=== PATIENT | female | born 1935 | race Caucasian/White ===

== ENCOUNTER 2016-04-22 23:43 | Inpatient (IN) | payer OTHER ==
--- NOTE | ~2016-04-22 | CN ---
Consultation Report [place] [id number] [place]. [address] NAME: KYLE PAZ : 37 STATUS : ADM Timo PAT#: [id number] AGE: 80 ADM/REG DATE : 04/22/16 MR#: [id number] REPORT SERV DATE: 04/23/16 DICTATED BY: KARO GANDHI DATE: 04/23/16 REPORT STATUS : Draft TRANSCRIBED BY: MODL DATE: 04/23/16 CARDIOLOGY CONSULTATION DATE OF CONSULTATION: 04/23/2016 REQUESTING PHYSICIAN: Silvestre Deluna M.D. REASON FOR CONSULTATION: Congestive heart failure. HISTORY OF PRESENT ILLNESS: Ms. Paz is a pleasant 80-year-old woman, who is living in [place], [place], who has been diagnosed with amyloidosis. This apparently was diagnosed with help of a bone marrow biopsy according to the patient. She was in the hospital in [place], treated for what sounds to be congestive heart failure in addition to seeing an oncologist in regard to the amyloidosis. The patient presented to our emergency room with complaints of volume overload including pedal edema. We do not have any knowledge of the patient's underlying left ventricular systolic function. She was admitted for further evaluation. Last night, Dr. Deluna had started IV Bumex drip to help with diuresis and the patient does feel more comfortable this morning. PAST MEDICAL HISTORY: 1. Notable for the recent diagnosis of amyloidosis, we do not have specifics at this time. 2. Possible congestive heart failure. 3. Hypothyroidism. 4. History of childhood tuberculosis with lung scarring. PAST SURGICAL HISTORY: Hysterectomy and skin cancer of the arm. FAMILY HISTORY: Notable for premature coronary disease. SOCIAL HISTORY: Negative tobacco. Negative alcohol. Family lives in [place], [place], and the patient is going to be moving from [place] to the [place] area to be with family. REVIEW OF SYSTEMS: As noted above. All other systems were reviewed and negative. PHYSICAL EXAMINATION: CONSTITUTIONAL: In no acute distress. Remains somewhat weak and a little bit short of breath. VITAL SIGNS: Blood pressure of 100/70, pulse of 86, and respirations 18. GENERAL: Well developed, well nourished. HEENT: No icterus. Good dentition. NECK: Supple. No masses or thyromegaly Consultation Report [place] [address] [place]. [address] NAME: KYLE PAZ : 36 STATUS : ADM Timo PAT#: [id number] AGE: 80 ADM/REG DATE : 04/22/16 MR#: [id number] REPORT SERV DATE: 04/23/16 DICTATED BY: KARO GANDHI DATE: 04/23/16 REPORT STATUS : Draft TRANSCRIBED BY: MODL DATE: 04/23/16 LUNGS: Decreased breath sounds in the bases. COR: Normal S1, S2. No S3 or S4. No murmurs, clicks, rubs. No JVD ABD: Soft, nondistended, nontender, no hepatosplenomegaly. EXT: 2+ edema in the lower extremities. SKIN: Warm and dry. No visible lesions. MS: Chest wall without deformity, no obvious clavicular fractures. NEURO/PSYCH: Oriented X3. No anxiety or depression. LABORATORY AND DIAGNOSTIC DATA: EKG shows sinus rhythm with normal AL, QRS, and QT intervals. No evidence for ischemia, infarction, or chamber hypertrophy. There is a left axis deviation. Laboratory values were unremarkable except for BNP of 1200. CT scan reveals evidence for portal pleural effusions and a mediastinal mass. IMPRESSION: Probable congestive heart failure, question if it is related to the patient's underlying amyloidosis. An echocardiogram has been ordered. We are holding DORIS inhibitor and beta carissa, due to relative hypotension. She is on an IV Bumex drip, we will continue as her blood pressure and renal function will tolerate. We will look for specific features of amyloidosis on echocardiogram including speckled pattern and evidence for systolic and diastolic dysfunction occurring together. Treatment remains limited for this from a cardiac standpoint. We will defer other issues regarding amyloidosis workup and treatment to other physicians being consulted on the case. /MODL Karo Gandhi M.D. / [id number] CC: Collins Hardy Jr, MD
--- NOTE | ~2016-04-22 | PUL ---
[place] [address] [id number] [place]. [address] NAME: KYLE PAZ : 36 STATUS : DIS IN PAT#: [id number] AGE: 80 ADM/REG DATE : 04/22/16 MR#: [id number] REPORT SERV DATE: 04/29/16 DICTATED BY: ZEENAT HIGH DATE: 04/29/16 REPORT STATUS : Draft TRANSCRIBED BY: MODL DATE: 04/29/16 PULMONARY FUNCTION TEST OVERNIGHT OXIMETRY. START DATE OF TESTIN04/24/2016. END DATE OF TESTIN04/25/2016 COMMENTS: Testing conducted with the patient breathing room air. RESULTS: Total valid sampling time: 6 hours 53 minutes and 2 seconds. Total time with an oxygen saturation less than 88%, 18 seconds. Oxygen desaturation event index. 26.0. IMPRESSION: There was no significant desaturation during this study conducted with the patient breathing room air. The oxygen desaturation index was elevated suspicious for possible obstructive sleep apnea, however, as noted, there was no significant oxygen desaturation. Recommend formal sleep study if clinically indicated. PS/YADIEL Zeenat High M.D. / [id number] CC: Ramon Cronin II, MD
--- NOTE | ~2016-04-22 | HP ---
History And Physical [place] [address] [facility] [place]. [address] NAME: KYLE PAZ : 36 STATUS : ADM Timo PAT#: [id number] AGE: 80 ADM/REG DATE : 04/22/16 MR#: [id number] REPORT SERV DATE: 04/23/16 DICTATED BY: YA KIM DATE: 04/23/16 REPORT STATUS : Draft TRANSCRIBED BY: MODL DATE: 04/23/16 DATE OF ADMISSION: 04/22/2016 CHIEF COMPLAINT: A 80-year-old female, moved down from [place], [place] to live with her daughter in [place], [place] and now asking for medical advice, and stabilization of volume overload and apparent AL amyloidosis. HISTORY OF PRESENT ILLNESS: The patient's history was obtained through an interview with the patient and her daughter. The patient had really been in usual state of health when just gradually over the last two years she has developed problems with volume overload, lower extremity edema, and shortness of breath. But then over the last four weeks or so, it is really progressed to the point where she had to seek out medical care. The patient was found to have a low serum albumin and proteinuria. This led to a bone marrow biopsy and the patient was apparently given the diagnosis of AL amyloidosis. She has seen an oncologist within the last month in [place], [place] and was recommended to possibly be on chemotherapy including Revlimid and dexamethasone, but this had not been started as they were waiting for patient's clinical state to improve. But over the last 11 days prior to this admission, she was hospitalized at [facility] in [place], [place] for volume overload issues including more than 1 thoracentesis for recurrent pleural effusions. The daughter really wanted the patient to be transferred down to the [place] area (close to where the daughter lives), so she was discharged from the hospital, just on the day of admission, and the daughter drove her down to our hospital to be admitted for further stabilization and to be established with physicians here in [place]. Her main complaints continued to be shortness of breath characterized both by dyspnea on exertion and orthopnea. There is no cough, no chest pain. The patient at this time denies any pain at all. No abdominal pain. No headache. No back pain. No nausea or vomiting. No fevers or chills. She continues to have pitting and uncomfortable lower extremity edema. Mild abdominal distention. REVIEW OF SYSTEMS: I went through a 14-point review of systems with the family and patient and was negative otherwise. History And Physical [address] [place]. [address] NAME: KYLE PAZ : 36 STATUS : ADM Timo PAT#: [id number] AGE: 80 ADM/REG DATE : 04/22/16 MR#: [id number] REPORT SERV DATE: 04/23/16 DICTATED BY: YA KIM DATE: 04/23/16 REPORT STATUS : Draft TRANSCRIBED BY: MODL DATE: 04/23/16 PAST MEDICAL HISTORY: 1. Amyloidosis. 2. Possible congestive heart failure? 3. Hypothyroidism. 4. Childhood tuberculosis with scarring of the lungs. 5. Pneumonia. 6. Hypotension with blood pressure chronically in the systolic 90s. 7. Thoracentesis, multiple in 2017. PAST SURGICAL HISTORY: 1. Hysterectomy. 2. Skin cancer of the arm. 3. Breast surgery for Staph infection years ago. ALLERGIES: NO KNOWN DRUG ALLERGIES. SOCIAL HISTORY: No tobacco abuse. No alcohol abuse. Now is moved to [place], [place] to live with daughter. She has a total of four children. Has been a for 32 years. 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 FAMILY HISTORY: Coronary artery disease. CURRENT MEDICATIONS: Include aspirin 81 mg daily, vitamin D, vitamin B12, Synthroid 125 mcg daily, multivitamin. PHYSICAL EXAMINATION: VITAL SIGNS: Temperature 98.0, pulse 93, blood pressure 103/60, respiratory rate 18, O2 saturation 92% on room air. GENERAL: A chronically ill-appearing female, but she does not appear in acute distress at this time. HEENT: Pupils equal, round, and reactive to light. No conjunctival pallor. No scleral icterus. Nares are patent. Oropharynx is clear of obstruction. Moist mucous membranes. NECK: Trachea midline. No thyromegaly. LYMPH: No cervical lymphadenopathy. No supraclavicular lymphadenopathy. RESPIRATORY: The patient does have wet rales at the base of lungs. Dullness to percussion to suggest bilateral pleural effusions. No rhonchi. No wheezes. The patient has a labored respiratory effort, but is not in any distress. CARDIOVASCULAR: Regular rate and rhythm. No murmurs, rubs, or gallops. The patient does have deeply pitting lower extremity edema extending from the feet upward to the thighs symmetrically. ABDOMEN: Soft, nontender, nondistended by my exam. No hepatosplenomegaly. DERMATOLOGICAL: Warm and dry extremities. No pallor, no cyanosis. PSYCHIATRIC: Normal affect. Good mood. Alert and oriented x3. LABORATORY DATA: White blood count 8.3, hemoglobin 14, hematocrit 35, platelets 297, MCV of 100.9. Sodium 131, potassium 4.5, chloride 92, bicarb 31, BUN 30, creatinine 0.7 glucose History And Physical [address] [address] NAME: KYLE PAZ : 36 STATUS : ADM Timo PAT#: [id number] AGE: 80 ADM/REG DATE : 04/22/16 MR#: [id number] REPORT SERV DATE: 04/23/16 DICTATED BY: YA KIM DATE: 04/23/16 REPORT STATUS : Draft TRANSCRIBED BY: YADIEL DATE: 04/23/16 94. Brain natriuretic peptide 1229, troponin 0.27, albumin 1.7. INR 1.2. TSH elevated at 13.7, and liver enzymes within normal limits. STUDIES: 1. CT angiogram of the chest shows bilateral pleural effusions. Also mediastinal lymphadenopathy/mass effect, possible pneumonia? likely atelectasis. No pulmonary embolism. 2. EKG by my own evaluation shows sinus rhythm, left axis deviation. ASSESSMENT AND PLAN: 1. AL amyloidosis. Would like to establish care with an oncologist in [place], so we will ask Oncology to see the patient. 2. Volume overload. Possible congestive heart failure? Check an echocardiogram. Hold Coreg and DORIS inhibitor though because of hypotension. Try IV Bumex drip to see if patient tolerates with her blood pressure and also place on IV albumin. 3. 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 4. Undertreated hypothyroidism, but had her Synthroid dose increased just a week ago from 100 mcg p.o. daily to 125 mcg p.o. daily. 5. Chronic hypotension with baseline low blood pressure in the 90s. I have requested records from [facility] in [place], [place]. KPL/MODL Ya Kim M.D. / [id number] CC: Collins Hardy Jr, MD
--- NOTE | ~2016-04-22 | DS ---
Discharge Summary [facility] [address] [place]. [address] NAME: KYLE PAZ : 36 STATUS : DIS IN PAT#: [id number] AGE: 80 ADM/REG DATE : 04/22/16 MR#: [id number] REPORT SERV DATE: 05/02/16 DICTATED BY: BULMARO TORREZ JR. DATE: 04/29/16 REPORT STATUS : Draft TRANSCRIBED BY: MODL DATE: 04/29/16 ADMISSION DATE: 04/22/2016 DISCHARGE DATE: 04/29/2016 DISCHARGE DIAGNOSES: 1. AL amyloidosis. 2. Acute on chronic diastolic congestive heart failure. 3. Recurrent bilateral pleural effusions, status post multiple thoracenteses. 4. Deconditioning. 5. Hypotension. 6. 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 7. Hypothyroidism. CONSULTS: 1. Dr. Vera with [facility]. 2. Dr. Ovalle with Cardiology. 3. Dr. High with Pulmonary. BRIEF HISTORY OF PRESENT ILLNESS: The patient is a 80-year-old female with the above history who presented to [facility] due to volume overload, but also with the intention of establishing care in the local area given her amyloidosis and multiple issues. For detailed history and physical examination, please see Dr. Deluna's note from 04/22/2016. HOSPITAL COURSE: On admission, the patient was volume overloaded with a BNP of 1228. She was diuresed and echo showed EF 50%-55% with moderate diastolic dysfunction and moderate AVR. She had a CTA of the chest done, which showed no pulmonary embolus, but dense areas of consolidation in the lingula and posterolateral left lower lobe concerning for pneumonia as well as atelectatic changes scattered within the lower lobes of both lungs as well as within the right upper lobe and middle lobe. Otherwise small to moderate right and moderate left pleural effusions. Mediastinal lymphadenopathy. Biapical fibrosis and pleural thickening. Diffusely thickened appearance of the esophagus, possibly due to esophagitis versus superimposed neoplastic process. Dr. Vera with [facility] was consulted. Extensive workup had already been done at [facility] and so records were obtained. The patient had already been given prescriptions and had filled her Revlimid and Decadron. She had not started taking them yet. Given that she will be leaving for assisted living facility, Dr. Bustillo has recommended going ahead and starting her Revlimid. Regarding her CHF, she was diuresed with Lasix with some improvement though she still does have some bilateral lower extremity edema. She had a thoracentesis done as well given reaccumulation of her pleural fluid. A 1.3 L was taken off the left lung. BNP is improved to 700. Pulmonary was involved and thought that the patient's recurrent effusions were likely related to her volume status, and if they continue to recover, may need pleurodesis. She was eventually switched by Cardiology to torsemide, Aldactone, and Toprol-XL. She will continue these and try and optimize her CHF. She will need close followup with Pulmonary, Cardiology, and [facility]. Currently, the patient is ambulating on room air and is stable for discharge. Discharge Summary [address] [address] NAME: KYLE PAZ : 36 STATUS : DIS IN PAT#: [id number] AGE: 80 ADM/REG DATE : 04/22/16 MR#: [id number] REPORT SERV DATE: 05/02/16 DICTATED BY: BULMARO TORREZ JR. DATE: 04/29/16 REPORT STATUS : Draft TRANSCRIBED BY: YADIEL DATE: 04/29/16 DISCHARGE MEDICATIONS: 1. Aspirin 81 mg p.o. daily. 2. Vitamin B12 500 mcg p.o. daily. 3. Vitamin D 1000 units p.o. daily. 4. Synthroid 125 mcg p.o. daily. 5. Multivitamin with minerals 1 tab p.o. daily. 6. Aldactone 12.5 mg p.o. b.i.d. 7. Demadex 5 mg p.o. daily. 8. Potassium chloride 20 mEq p.o. daily. 9. Toprol-XL 12.5 mg p.o. daily. 10.Revlimid 15 mg p.o. daily x21 days. 11.Decadron 20 mg p.o. weekly. DISCHARGE INSTRUCTIONS: The patient will follow up with Dr. Vera in one week. She will follow up with Dr. High in two to three weeks. She will follow up with Dr. Ovalle on 05/16/2016 at 8:30. A BMP will be drawn in two weeks and faxed to Dr. Ovalle. /PRAFULL Bulmaro Torrez Jr., M.D. / [id number] CC: MD Afshin Lambert II, M.D. Kevin P Luce, M.D. Pamela Sud, M.D. Ravi Chander, M.D. Bertrand Marquess Anz III, M.D.
--- NOTE | ~2016-04-22 | CN ---
Consultation Report [place] [address] [facility] [place]. [address] NAME: KYLE PAZ : 36 STATUS : ADM Timo PAT#: [id number] AGE: 80 ADM/REG DATE : 04/22/16 MR#: [id number] REPORT SERV DATE: 04/23/16 DICTATED BY: SHABNAM LOGAN DATE: 04/23/16 REPORT STATUS : Draft TRANSCRIBED BY: MODL DATE: 04/23/16 HEMATOLOGY/ONCOLOGY CONSULT. DATE OF CONSULTATION: CONSULTING PHYSICIAN: Hospitalist's service. HISTORY OF PRESENT ILLNESS: This is a very nice 80-year-old, female, with past medical history significant for hypothyroidism, previous diagnosis of tuberculosis, and recent diagnosis of AL amyloidosis. Ms Paz and her daughter informed me that over the past month to two months, she has had progressive weakness, shortness of breath, and swelling. She was admitted to [facility], seen by variety of specialists including Nephrology and Hematology/Oncology (Dr. Guallpa). She underwent evaluation with a kidney biopsy, and bone marrow biopsy, as well as serum and urine studies. A diagnosis of AL amyloidosis was made. Ms. Paz was prescribed Revlimid and dexamethasone by Dr. Guallpa, but did not start due to her acute illness. She was discharged, then readmitted at a hospital in [place], [place]. She underwent diuresis and thoracentesis. She was discharged, and then readmitted here as the patient's daughter lives in [facility], and she is sought to be closer to family. Currently, she complains of weakness and shortness of breath. She is treated now with a Bumex drip and albumin infusions. Cardiology has been consulted, and an echocardiogram performed. PAST MEDICAL HISTORY: 1. Hypothyroidism. 2. Previous diagnosis of tuberculosis. 3. Recent diagnosis of amyloidosis. 4. Status post hysterectomy. ALLERGIES: NO KNOWN DRUG ALLERGIES. MEDICATIONS: Current medications include albumin, aspirin, B12, vitamin D, Lovenox, Synthroid, and multivitamin. FAMILY HISTORY: Notable for CAD. SOCIAL HISTORY: The patient does not smoke or drink alcohol. She now lives in [place], [place], attempting to live with her daughter. She is . REVIEW OF SYSTEMS: Eleven system review of systems was performed and is notable for those symptoms mentioned in Consultation Report [address] [place]. [address] NAME: KYLE PAZ : 36 STATUS : ADM Timo PAT#: [id number] AGE: 80 ADM/REG DATE : 04/22/16 MR#: [id number] REPORT SERV DATE: 04/23/16 DICTATED BY: SHABNAM LOGAN DATE: 04/23/16 REPORT STATUS : Draft TRANSCRIBED BY: MODL DATE: 04/23/16 the history of present illness. PHYSICAL EXAMINATION: VITAL SIGNS: Blood pressure 99/59, temperature 98.4, pulse 104, respirations 16. GENERAL: Thin elderly white female with no acute distress. HEAD: Atraumatic and normocephalic. HEENT: Anicteric sclerae, no oral thrush or mucositis. LYMPH NODE SURVEY: There is no palpable cervical, supraclavicular, or axillary lymphadenopathy. PULMONARY: Decreased breath sounds throughout. CARDIAC: Regular rate and rhythm without murmurs. ABDOMEN: Soft, nontender, without a spleen tip which is palpable. EXTREMITIES: Bilateral lower extremity edema. NEUROLOGIC: Alert and oriented x3. Moving all extremities. PSYCHIATRIC: Appropriate insight. No hallucinations. LABORATORY STUDIES: CBC: White count 5.5, hemoglobin 11.3, platelet count 284. CMP: Sodium 134, potassium 3.8, BUN 26, creatinine 0.77, albumin 2.9, total protein 5.8. BNP: 1327.9. CTA chest imaging: No pulmonary embolus. Consolidation in the lingula and left lower lobe, likely representing pneumonia. Atelectasis also noted in both lungs. Bilateral pleural effusions. Mediastinal lymphadenopathy, possibly reactive. Biapical fibrosis and pleural thickening, diffusely thickened esophagus, likely esophagitis. Evidence of old granulomatous disease. ASSESSMENT AND PLAN: This is a very pleasant 80-year-old female, who carries a diagnosis of AL amyloidosis. She presents with shortness of breath and evidence of congestive heart failure. 1. I will request old records, including pathology/imaging, lab work from [facility]. 2. I will repeat serum studies including SPEP, immunofixation, and serum free light chains. Given that she is receiving a Bumex drip, I will defer 24 hour urine and urine protein electrophoresis for now. From the history, it seems that she has significant amounts of proteinuria, which would be consistent with amyloidosis. 3. If this is indeed an AL amyloid with cardiac involvement, the prognosis is very poor. Given her performance status and age, oral therapy with Revlimid and dexamethasone is a very reasonable option. 4. I will follow with you. Thank you for this consult. [facility]/PRAFULL Consultation Report [facility] [address] [address] NAME: KYLE PAZ : 37 STATUS : ADM Timo PAT#: [id number] AGE: 80 ADM/REG DATE : 04/22/16 MR#: [id number] REPORT SERV DATE: 04/23/16 DICTATED BY: SHABNAM LOGAN. DATE: 04/23/16 REPORT STATUS : Draft TRANSCRIBED BY: YADIEL DATE: 04/23/16 Shabnam Logan M.D. / [id number] CC: Lucretia Mcconnell M.D.
--- NOTE | ~2016-04-22 | CN ---
Consultation Report [facility] [address] [place]. [address] NAME: KYLE PAZ : 37 STATUS : ADM Timo PAT#: [id number] AGE: 80 ADM/REG DATE : 04/22/16 MR#: [id number] REPORT SERV DATE: 04/24/16 DICTATED BY: CHAO ANDERSON IV DATE: 04/24/16 REPORT STATUS : Draft TRANSCRIBED BY: MODMaximiliano DATE: 04/24/16 DATE OF CONSULTATION: 04/24/2016 REASON FOR CONSULTATION: Pleural effusions, pulmonary infiltrates, and mediastinal adenopathy. HISTORY OF PRESENT ILLNESS: History is obtained from the patient and the records. Ms. 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 The patient reportedly has had problems with increasing shortness of breath and peripheral edema over the last year. She was recently hospitalized at [facility] in March, where extensive evaluation demonstrated what was reported amyloidosis on a biopsy of the kidney as well as a plasma cell tumor in the bone marrow biopsy. The patient was offered chemotherapy, however, deferred treatment at that time. She has been hospitalized recently in [place] for shortness of breath and recurrent pleural effusions status post two reported left thoracenteses of 2 L and 1.5 L. The characteristics of that fluid are not known at this time. Because of wishes to establish care in this area, they were discharged from [place] and the daughter brought the patient to our facility, where she was admitted. The patient currently has no significant complaints of shortness of breath. She has an occasional dry and nonproductive cough. She denies any apparent sputum production, fevers, chills, sweats, or hemoptysis at this time. She reportedly had an abnormal overnight oximetry, for which supplemental oxygen was to be offered; however, she is not on oxygen at this time. She is not on bronchodilator medications. As part of the evaluation, the patient had a CT scan performed at [facility], which demonstrated a large AP window lymph node, which was suggested to be followed serially. She had thickening of the esophagus on studies as well. The patient reportedly snores and her son has noted some apneic episodes. She allows herself 7 hours to 8 hours of sleep last evening. Sleep is marginally restorative and she does complain of some sedentary hypersomnolence. PULMONARY HISTORY: Remarkable for no history of childhood asthma or known adult obstructive lung disease. She has had by her report tuberculosis in the past based on previous exposure, positive skin test, and scarring in her right upper lobe, which is old. She did receive one year of INH for this. She is a lifelong nonsmoker. She had reported asbestos exposure when she was younger and does have some pleural calcifications. She is up-to-date on her immunizations. PAST MEDICAL HISTORY: 1. Reported pulmonary tuberculosis. 2. Hypothyroidism. 3. Left ventricular hypertrophy with diastolic heart dysfunction and aortic and mitral insufficiency. Consultation Report [place] [address] [place]. [address] NAME: KYLE PAZ : 37 STATUS : ADM Timo PAT#: [id number] AGE: 80 ADM/REG DATE : 04/22/16 MR#: [id number] REPORT SERV DATE: 04/24/16 DICTATED BY: CHAO ANDERSON IV DATE: 04/24/16 REPORT STATUS : Draft TRANSCRIBED BY: YADIEL DATE: 04/24/16 4. 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 SURGERIES: She had total abdominal hysterectomy. The kidney biopsy is noted. She had I and D of abscesses of staph infection in both breasts. She had left foot surgery and ear surgery. ALLERGIES: THERE ARE NO KNOWN DRUG ALLERGIES. CURRENT MEDICATIONS: The patient is on Synthroid 125 mcg daily, aspirin 81 mg daily, Bumex 1 mg q.12 hours, Lovenox 40 mg subcutaneously daily, multivitamin daily, B12 daily, and vitamin D daily. SOCIAL HISTORY: Remarkable for no tobacco, alcohol, or illicit drug use. She is and has four children. FAMILY HISTORY: Remarkable for both parents with hypertension and coronary artery disease and her maternal grandfather with tuberculosis. REVIEW OF SYSTEMS: Fourteen-systems reviewed. Pertinent positives as noted above. PHYSICAL EXAMINATION: GENERAL: This is a pleasant elderly female, in no current distress. She is alert, awake, and oriented. VITAL SIGNS: Temperature is 97.7, pulse is 93, oxygen saturation is 96% on room air, respiratory rate 16, her blood pressure is 105/58. HEENT: Normocephalic, atraumatic. Extraocular movements are intact. Pupils react to light. Sclerae and conjunctivae are normal. There is no drainage from either nasal passage. She has a Mallampati III airway with elongated soft palate and narrowing of the posterior pharyngeal space. No other oral lesions are noted. NECK: Without any palpable lymphadenopathy or thyromegaly. CHEST: The patient has decreased breath sounds at both bases. There are some minimal dry bibasilar inspiratory crackles. No wheezes or rhonchi noted. CARDIOVASCULAR: Jugular venous pulsations appear to be approximately 7 cm. She has 1+ carotid upstrokes. No obvious bruit. She has a distant regular S1 and S2 with no clear murmur, S3, or S4. Peripheral pulses are diminished. ABDOMEN: Surgical scars are noted. Soft and nontender. There are hypoactive bowel sounds. There is no palpable hepatosplenomegaly or masses. EXTREMITIES: Demonstrate some trace to 1+ pitting edema. There is no cyanosis, clubbing, or palpable cords. There are some chronic venous stasis changes. NEUROLOGIC: The patient is able to move all extremities. Strength is 5/5 and sensation intact to light touch. LABORATORY AND DIAGNOSTIC DATA: Chest CT scan and CT angiogram demonstrated some scarring in the right upper lobe with some calcifications centrally. There are some calcified pleural Consultation Report [address] [place]. [address] NAME: KYLE PAZ : 37 STATUS : ADM Timo PAT#: [id number] AGE: 80 ADM/REG DATE : 04/22/16 MR#: [id number] REPORT SERV DATE: 04/24/16 DICTATED BY: CHAO ANDERSON IV DATE: 04/24/16 REPORT STATUS : Draft TRANSCRIBED BY: YADIEL DATE: 04/24/16 plaques. She has some patchy infiltrate in the lateral lingula and left lower lobe. There is some dilatation of the esophagus with thickening of the wall. She has fairly large level V lymph node with a level VII lymph node as well and some smaller lymph nodes in the mediastinum. There is a left greater than right pleural effusion that is mild on the right, [id number] on the left. CBC: Hemoglobin is 11.8, hematocrit 34.4, platelet count is 303,000, white blood cell count is 6.5, INR is 1.3, procalcitonin level is less than 0.05. Chemistry: Sodium 136, potassium 3.5, chloride 94, bicarbonate 33, BUN 27, creatinine 0.79, glucose of 98, magnesium is 2.2. The troponins are 0.27 and 0.25. TSH were 30.7 and 6.05. The IgG was 423 with IgA of 152 and IgM significantly elevated at 1200. ASSESSMENT AND PLAN: 1. Respiratory. We will get the results of the previous thoracentesis from [facility]. There is no indication without these results of a diagnostic and there is no reason for therapeutic at this time. We will get actual disk of the [facility] chest CT scan to evaluate comparison of the lymph nodes and see if they have enlarged, particularly the level VII, which is not described on the earlier study. Oxygen will be provided if needed to maintain saturations in the 99% range. The infiltrates are concerning for pneumonia; however, she has no symptoms of pneumonia and a low procalcitonin level. This could be potentially amyloid involvement of the lung. The patient does have a history of old tuberculosis with possibly explaining the upper lobe scarring. She also has some symptoms consistent with obstructive sleep apnea, which will be evaluated in the overnight oximetry. 2. Endocrinologic. Her TSH is still elevated and so we would consider increasing the Synthroid. 3. Renal. We will replace the patient's potassium. Add phosphate to blood in the lab. ABG may be obtained if she has further rise in the bicarbonate to document metabolic alkalosis. 4. Infectious disease. The patient does have the low IgG, so we will check IgG subclass levels as this may be part of her plasma cell process. Thank you for consulting us. I spent more than 30 minutes reviewing records from other facilities. We will follow the patient with you. NM/MODL Chao Anderson IV, M.D. / [id number] CC: Lucretia Mcconnell M.D.
[2016-04-22 21:56] LABS: BASOPHILS 0.2 %; BASOPHILS ABSOLUTE 0.02 10/3/uL (0.0-0.16); EOSINOPHILS 0.8 %; EOSINOPHILS ABSOLUTE 0.07 10/3/uL (0.0-0.53); ER CBC TAT 0 Hrs 12 Mins; HEMATOCRIT 35.4 % (36.0-48.0); HEMOGLOBIN 13.6 g/dL (12.0-16.0); IMMATURE GRANULOCYTES 0.4 %; IMMATURE GRANULOCYTES ABSOLUTE 0.03 10/3/uL (0.0-0.11); LYMPHOCYTES 12.5 %; LYMPHOCYTES ABSOLUTE 1.03 10/3/uL (0.67-4.30); MEAN CORPUS HGB CONC 38.4 g/dL (32.0-36.0); MEAN CORPUSCULAR HEMOGLOB 38.7 pg (26.0-34.0); MEAN CORPUSCULAR VOLUME 100.9 fL (80-100); MEAN PLATELET VOLUME 10.9 fL (9.2-13.0); MONOCYTES ABSOLUTE 0.91 10/3/uL (0.21-1.20); NEUTROPHILS 75.1 %; NEUTROPHILS ABSOLUTE 6.21 10/3/uL (2.02-8.40); PLATELET COUNT 297 10/3/uL (150-400); RBC DISTRIBUTION WIDTH 13.3 % (12.0-16.0); RED CELL COUNT 3.51 10/6/uL (4.0-5.6); WHITE BLOOD CELLS 8.3 10/3/uL (4.5-10.5)
[2016-04-22 22:02] LABS: INTERNATIONAL NORMAL RATI 1.2 UNITS (-); PROTIME (NOT ORD) 14.9 SEC (12.0-14.5)
[2016-04-22 22:03] LABS: PARTIAL THROMBO TIME 32.7 SEC (22.5-37.2)
[2016-04-22 22:11] LABS: BUN (BLOOD UREA NITROGEN) 30 MG/DL (6-23); CALCIUM, SERUM 8.2 MG/DL (8.5-10.4); CHLORIDE, SERUM 92 MMOL/L (96-112); CO2 (CARBON DIOXIDE) 31 MMOL/L (24-34); GFR AFRICAN AMERICAN 96 ML/MIN (>=60); GFR NON AFRICAN AMERICAN 82 ML/MIN (>=60); POTASSIUM, SERUM 4.5 MMOL/L (3.5-5.3); SODIUM, SERUM 131 MMOL/L (135-148)
[2016-04-22 22:13] LABS: GLUCOSE, SERUM 94 MG/DL (60-99)
[2016-04-22 22:14] LABS: CHEST PAIN PROFILE TAT 0 Hrs 30 Mins; TROPONIN I 0.27 NG/ML (<0.05)
[2016-04-22 22:27] LABS: MANUAL DIFF NO %
[2016-04-23 00:23] LABS: ALBUMIN 1.7 G/DL (3.5-5.0); TOTAL BILIRUBIN 0.3 MG/DL (0-1.2)
[2016-04-23 00:32] LABS: ALKALINE PHOSPHATASE 83 U/L (45-117); TOTAL PROTEIN 6.4 G/DL (6.0-8.5)
[2016-04-23 00:35] LABS: DIRECT BILIRUBIN < 0.1 MG/DL (0.0-0.4); INDIRECT BILIRUBIN(NOT ORDER) 0.2 MG/DL (0.1-0.9); SGOT(AST) 46 U/L (5-40); SGPT(ALT) 37 U/L (5-65)
[2016-04-23] MEDS ORDERED: VITAMIN D1000 UNI1 PO (03:01)
[2016-04-23] MEDS ORDERED: ASAB PO (03:01)
[2016-04-23] MEDS ORDERED: SYN125 PO (03:02)
[2016-04-23] MEDS ORDERED: MULTIVIT/MIN PO (03:02)
[2016-04-23] MEDS ORDERED: B12250T PO (03:02)
[2016-04-23 15:21] LABS: BASOPHILS 0.4 %; BASOPHILS ABSOLUTE 0.02 10/3/uL (0.0-0.16); EOSINOPHILS 1.6 %; EOSINOPHILS ABSOLUTE 0.09 10/3/uL (0.0-0.53); HEMATOCRIT 31.6 % (36.0-48.0); HEMOGLOBIN 11.3 g/dL (12.0-16.0); IMMATURE GRANULOCYTES 0.4 %; IMMATURE GRANULOCYTES ABSOLUTE 0.02 10/3/uL (0.0-0.11); LYMPHOCYTES 12.4 %; LYMPHOCYTES ABSOLUTE 0.68 10/3/uL (0.67-4.30); MEAN CORPUS HGB CONC 35.8 g/dL (32.0-36.0); MEAN CORPUSCULAR HEMOGLOB 35.5 pg (26.0-34.0); MEAN CORPUSCULAR VOLUME 99.4 fL (80-100); MEAN PLATELET VOLUME 10.7 fL (9.2-13.0); MONOCYTES 15.3 %; MONOCYTES ABSOLUTE 0.84 10/3/uL (0.21-1.20); NEUTROPHILS 69.9 %; NEUTROPHILS ABSOLUTE 3.84 10/3/uL (2.02-8.40); PLATELET COUNT 284 10/3/uL (150-400); RBC DISTRIBUTION WIDTH 13.4 % (12.0-16.0); RED CELL COUNT 3.18 10/6/uL (4.0-5.6); WHITE BLOOD CELLS 5.5 10/3/uL (4.5-10.5)
[2016-04-23 15:24] LABS: MANUAL DIFF NO %
[2016-04-23 15:37] LABS: INTERNATIONAL NORMAL RATI 1.3 UNITS (-); PROTIME (NOT ORD) 16.2 SEC (12.0-14.5)
[2016-04-23 16:14] LABS: CALCIUM, SERUM 8.4 MG/DL (8.5-10.4); CHLORIDE, SERUM 92 MMOL/L (96-112); CO2 (CARBON DIOXIDE) 34 MMOL/L (24-34); CREATININE 0.77 MG/DL (0.55-1.02); FREE T4 1.22 NG/DL (0.76-1.46); GFR AFRICAN AMERICAN 85 ML/MIN (>=60); GFR NON AFRICAN AMERICAN 73 ML/MIN (>=60); POTASSIUM, SERUM 3.8 MMOL/L (3.5-5.3); SODIUM, SERUM 134 MMOL/L (135-148); TOTAL BILIRUBIN 0.5 MG/DL (0-1.2); TOTAL PROTEIN 5.8 G/DL (6.0-8.5)
[2016-04-23 16:16] LABS: ALBUMIN 2.9 G/DL (3.5-5.0); ALKALINE PHOSPHATASE 68 U/L (45-117); BUN (BLOOD UREA NITROGEN) 26 MG/DL (6-23); GLOBULIN 2.9 G/DL (2.5-4.1); GLUCOSE, SERUM 124 MG/DL (60-99); SGOT(AST) 28 U/L (5-40); SGPT(ALT) 26 U/L (5-65); TROPONIN I 0.25 NG/ML (<0.05)
[2016-04-24 05:46] LABS: BASOPHILS 0.2 %; BASOPHILS ABSOLUTE 0.01 10/3/uL (0.0-0.16); EOSINOPHILS 1.9 %; EOSINOPHILS ABSOLUTE 0.12 10/3/uL (0.0-0.53); HEMATOCRIT 34.4 % (36.0-48.0); HEMOGLOBIN 11.8 g/dL (12.0-16.0); IMMATURE GRANULOCYTES 0.3 %; IMMATURE GRANULOCYTES ABSOLUTE 0.02 10/3/uL (0.0-0.11); LYMPHOCYTES ABSOLUTE 0.84 10/3/uL (0.67-4.30); MEAN CORPUS HGB CONC 34.3 g/dL (32.0-36.0); MEAN CORPUSCULAR HEMOGLOB 33.5 pg (26.0-34.0); MEAN CORPUSCULAR VOLUME 97.7 fL (80-100); MEAN PLATELET VOLUME 10.7 fL (9.2-13.0); MONOCYTES 16.1 %; MONOCYTES ABSOLUTE 1.04 10/3/uL (0.21-1.20); NEUTROPHILS 68.5 %; NEUTROPHILS ABSOLUTE 4.42 10/3/uL (2.02-8.40); PLATELET COUNT 303 10/3/uL (150-400); RBC DISTRIBUTION WIDTH 13.4 % (12.0-16.0); RED CELL COUNT 3.52 10/6/uL (4.0-5.6); WHITE BLOOD CELLS 6.5 10/3/uL (4.5-10.5)
[2016-04-24 05:50] LABS: MANUAL DIFF NO %
[2016-04-24 06:16] LABS: T PROTEIN (ELECT)(NOT OR 5.7 G/DL (6.0-8.5)
[2016-04-24 07:00] LABS: SED RATE 91 MM/HR (0-20)
[2016-04-24 08:11] LABS: BUN (BLOOD UREA NITROGEN) 27 MG/DL (6-23); CALCIUM, SERUM 8.4 MG/DL (8.5-10.4); CHLORIDE, SERUM 94 MMOL/L (96-112); CO2 (CARBON DIOXIDE) 33 MMOL/L (24-34); CREATININE 0.79 MG/DL (0.55-1.02); GFR AFRICAN AMERICAN 83 ML/MIN (>=60); GFR NON AFRICAN AMERICAN 71 ML/MIN (>=60); IMMUNOGLOBULIN A 152 MG/DL (70-420); IMMUNOGLOBULIN G 423 MG/DL (673-1464); POTASSIUM, SERUM 3.5 MMOL/L (3.5-5.3); SODIUM, SERUM 136 MMOL/L (135-148)
[2016-04-24 08:42] LABS: ASCORBIC ACID (UR NOT ORDER) 20 (NEG); BILIRUBIN, URINE NEGATIVE (NEG); KETONE, URINE NEGATIVE (NEG); LEUKOCYTE ESTERASE(NOT OR NEG (NEG); WBC (NOT ORDERED) (RFLEX) 4 (0-5)
[2016-04-24 09:03] LABS: GLUCOSE, SERUM 98 MG/DL (60-99); IMMUNOGLOBULIN M 1200 MG/DL (30-270)
[2016-04-24 17:52] LABS: PHOSPHORUS, SERUM 3.7 MG/DL (2.5-4.5)
[2016-04-25 06:52] LABS: BUN (BLOOD UREA NITROGEN) 27 MG/DL (6-23); CALCIUM, SERUM 8.6 MG/DL (8.5-10.4); CHLORIDE, SERUM 93 MMOL/L (96-112); CO2 (CARBON DIOXIDE) 32 MMOL/L (24-34); CREATININE 0.81 MG/DL (0.55-1.02); GFR AFRICAN AMERICAN 80 ML/MIN (>=60); GFR NON AFRICAN AMERICAN 69 ML/MIN (>=60); GLUCOSE, SERUM 108 MG/DL (60-99); SODIUM, SERUM 134 MMOL/L (135-148)
[2016-04-25 06:56] LABS: IMMUNOGLOBULIN G 551 MG/DL (673-1464)
[2016-04-26 06:48] LABS: BUN (BLOOD UREA NITROGEN) 25 MG/DL (6-23); CALCIUM, SERUM 8.2 MG/DL (8.5-10.4); CHLORIDE, SERUM 96 MMOL/L (96-112); CO2 (CARBON DIOXIDE) 31 MMOL/L (24-34); CREATININE 0.76 MG/DL (0.55-1.02); GFR AFRICAN AMERICAN 86 ML/MIN (>=60); GFR NON AFRICAN AMERICAN 75 ML/MIN (>=60); SODIUM, SERUM 134 MMOL/L (135-148)
[2016-04-26 06:49] LABS: GLUCOSE, SERUM 92 MG/DL (60-99)
[2016-04-26 09:49] LABS: A/G 1.12 RATIO (0.9-2.10); ABNORMAL PEAK 1 0.42 G/DL; ABNORMAL PEAK 1 % 7.5 % (0); ALB RELATIVE % 52.8 % (60.0-89.0); ALBUMIN (ELECTRO) 3.01 GM/DL (3.2-5.5); ALPHA 1 (ELECTRO) 0.16 GM/DL (0.1-0.4); ALPHA 1 RELAT % (NOT ORD) 2.8 % (1.0-4.0); ALPHA 2 (ELECTRO) 0.87 GM/DL (0.5-1.10); ALPHA 2 RELAT % 15.3 % (4.5-26.0); BETA GLOBULIN (SPE) 0.51 GM/DL (0.60-1.30); BETA RELATIVE % 8.9 % (9.0-22.0); GAMMA GLOBULIN (SPE) 1.15 G/DL (0.70-1.60); GAMMA RELAT % 20.2 % (6.0-22.0)
[2016-04-26 19:57] LABS: KAPPA FLC 4.15 mg/dL (0.33-1.94); KAPPA LAMBDA FLC RATIO 0.49 (0.26-1.65); LAMBDA FLC 8.55 mg/dL (0.57-2.63)
[2016-04-27 05:30] LABS: BUN (BLOOD UREA NITROGEN) 27 MG/DL (6-23); CALCIUM, SERUM 8.4 MG/DL (8.5-10.4); CHLORIDE, SERUM 97 MMOL/L (96-112); CO2 (CARBON DIOXIDE) 29 MMOL/L (24-34); CREATININE 0.73 MG/DL (0.55-1.02); GFR AFRICAN AMERICAN 91 ML/MIN (>=60); GFR NON AFRICAN AMERICAN 78 ML/MIN (>=60); POTASSIUM, SERUM 3.8 MMOL/L (3.5-5.3); SODIUM, SERUM 134 MMOL/L (135-148)
[2016-04-27 05:36] LABS: GLUCOSE, SERUM 98 MG/DL (60-99)
[2016-04-27 08:58] LABS: INTERNATIONAL NORMAL RATI 1.2 UNITS (-); PARTIAL THROMBO TIME 27.6 SEC (22.5-37.2); PROTIME (NOT ORD) 14.7 SEC (12.0-14.5)
[2016-04-27 14:14] LABS: INSTRUMENT SERIAL # 35151; SAMPLE PLR
[2016-04-27 14:25] LABS: LDH BODY FLUID (NOT ORD) 75 U/L; PROTEIN BODY FLUID 1.4 G/DL
[2016-04-27 14:39] LABS: BF TOTAL CELL CT (NOT ORD 1132 /MM3; BODY FLUID RBC (NOT ORD) 838 /MM3
[2016-04-27 14:41] LABS: BD FL LYMPH (NOT ORD) 84 %; BD FL SOURCE (NOT ORD) PLEURAL; BF BASO (NOT OF) 0 %; BF LARGE MONONUCLEAR 13 %; BODY FLUID EOS (NOT ORD) 0 %; BODY FLUID SEG (NOT ORD) 3 %
[2016-04-29 06:52] LABS: BUN (BLOOD UREA NITROGEN) 27 MG/DL (6-23); CALCIUM, SERUM 8.1 MG/DL (8.5-10.4); CHLORIDE, SERUM 97 MMOL/L (96-112); CO2 (CARBON DIOXIDE) 30 MMOL/L (24-34); CREATININE 0.79 MG/DL (0.55-1.02); GFR AFRICAN AMERICAN 83 ML/MIN (>=60); GFR NON AFRICAN AMERICAN 71 ML/MIN (>=60); POTASSIUM, SERUM 3.7 MMOL/L (3.5-5.3); SODIUM, SERUM 134 MMOL/L (135-148)
[2016-04-29 06:56] LABS: GLUCOSE, SERUM 98 MG/DL (60-99)
[2016-04-29] MEDS ORDERED: SPIRO25 PO (14:55)
[2016-04-29] MEDS ORDERED: TOPXL25 PO (14:55)
[2016-04-29] MEDS ORDERED: DEMADEX5 MG PO (14:56)
[2016-04-29] MEDS ORDERED: KDUR20 PO (14:57)
== END 2016-04-29 16:13 | disposition home health service (06) | DRG 545 ==
LOC: ER 23:43 → CDU1 23:59 → CDU2 04-23 02:55 → 5NO 04-23 08:17
PROVIDERS: Emergency Medicine; Internal Medicine; Internal Medicine Clinical Cardiac Electrophysiology; Internal Medicine Hematology & Oncology; Thoracic Surgery (Cardiothoracic Vascular Surgery)
PROC: 0W9B3ZZ Drainage of Left Pleural Cavity, Percutaneous Approach (ICD-10-PCS; principal; 2016-04-27)
DX: E85.8 Other amyloidosis (principal); I50.33 Acute on chronic diastolic (congestive) heart failure; I95.89 Other hypotension; J90 Pleural effusion, not elsewhere classified; E03.9 Hypothyroidism, unspecified; N08 Glomerular disorders in diseases classified elsewhere; Z79.82 Long term (current) use of aspirin
CPT/HCPCS: 32555; 71010; 71020; 71275; 80048; 80053; 80076; 81001; 82533; 82784; 82805; 83615; 83735; 83880; 83883; 83883-59; 83986; 84100; 84145; 84155; 84157; 84165; 84439; 84443; 84484; 85025; 85049; 85610; 85652; 85730; 87040; 88112; 88305; 89051; 93005; 93306; 94640; 94762; 97116-GP; 97161-GP; 97166-GO; 99285; A9270-GY; P9047; Q9967

== ENCOUNTER 2016-05-01 18:58 | Inpatient (IN) | payer OTHER ==
--- NOTE | ~2016-05-01 | CN ---
Consultation Report [facility] [address] [place]. [address] NAME: KYLE PAZ : 36 STATUS : ADM IN PAT#: [id number] AGE: 80 ADM/REG DATE : 05/01/16 MR#: [id number] REPORT SERV DATE: 05/03/16 DICTATED BY: RUFUS CONNOLLY DATE: 05/02/16 REPORT STATUS : Draft TRANSCRIBED BY: MODL DATE: 05/02/16 CARDIOLOGY CONSULTATION DATE OF CONSULTATION: 05/02/2016 REASON FOR CONSULTATION: Abnormal troponin, heart failure. HISTORY OF PRESENT ILLNESS: Ms. Paz is a very pleasant 80-year-old female, known to us from her recent hospital admission during which time, she was managed for diastolic heart failure in the setting of a recent diagnosis of AL amyloidosis. She was actually discharged on Monday after undergoing a left pleurocentesis and diuresis and was sent to [facility]. She has continued to have progressive shortness of breath since discharge and came back to the ER yesterday evening, at which time a chest x-ray was suggestive of recurrent left pleural effusion. She has had three thoracentesis that she is aware of since her diagnosis was made earlier this year in [place]. She is short of breath in the supine position and with minimal activity. She has also had persistent lower extremity edema. She has had no chest discomfort or tightness and has no history of coronary artery disease or prior CO. An echocardiogram performed during her last admission was notable for mild LVH with preserved LV systolic function and moderate aortic regurgitation. Chest CT performed today demonstrates a pleural effusion quality describes as moderate to large on the left side with significant compressive associated atelectasis and a large lymph node in the left mediastinum. There is also circumferential thickening of the mid to distal esophagus described. PAST MEDICAL HISTORY: 1. 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 2. Heart failure with preserved ejection fraction. 3. Recurrent pleural effusion. 4. Aortic regurgitation, moderate. 5. Hypothyroidism. 6. Remote history of TB as a child. PAST SURGICAL HISTORY: Total abdominal hysterectomy and resection of skin cancer. ALLERGIES: NONE. MEDICATIONS: Home medications reviewed notable for aspirin, vitamin D, vitamin B12, dexamethasone, Revlimid, Synthroid, Toprol-XL, multivitamin, potassium, Aldactone, and Demadex. FAMILY HISTORY: Noncontributory. Consultation Report [address] [place]. [address] NAME: KYLE PAZ : 36 STATUS : ADM IN PAT#: [id number] AGE: 80 ADM/REG DATE : 05/01/16 MR#: [id number] REPORT SERV DATE: 05/03/16 DICTATED BY: RUFUS CONNOLLY DATE: 05/02/16 REPORT STATUS : Draft TRANSCRIBED BY: YADIEL DATE: 05/02/16 SOCIAL HISTORY: The patient previously lived in [place], has now transitioned to [facility] since moving back to the [facility]. No alcohol, tobacco, or illicits. REVIEW OF SYSTEMS: Per HPI, otherwise, negative. PHYSICAL EXAMINATION: VITAL SIGNS: Temperature is 97.5, pulse is 90, blood pressure is 95/51, and respiratory rate is 18. GENERAL: Thin female, in no apparent distress. Speech is nonlabored. HEENT: Sclerae anicteric. Mucous membranes are moist. NECK: Supple. CARDIOVASCULAR: Regular rhythm with an early diastolic murmur present, best appreciated left lower sternal border. PULMONARY: Diminished breath sounds at bilateral bases with crackles at the right base. No wheezes. ABDOMEN: Soft, nondistended, nontender. EXTREMITIES: Warm. Pitting edema is present bilaterally to the mid lower leg. LABORATORY DATA: Reviewed and notable for elevated troponin of approximately 0.2. Creatinine 0.90. Hemoglobin 13.4 and white blood cell count 5.1. EKG: Demonstrates sinus rhythm, rate 107, cannot rule out old inferior CO. Nonspecific ST- segment abnormality. Echocardiogram from 04/22/2016 reviewed and per HPI. IMPRESSIONS/RECOMMENDATIONS: 1. Amyloid light-chain amyloidosis. 2. Heart failure with preserved ejection fraction, acute on chronic. 3. Pleural effusion, left greater than right, recurrent. 4. Elevated troponin. 5. Aortic regurgitation, moderate. 6. The patient has recurrent pleural effusion. This is likely the cause of most of her shortness of breath. This is associated with her amyloidosis and diastolic heart failure. She is appropriately being treated with IV Bumex. I see that the pulmonary team has evaluated her and are considering pleurodesis for current pleural effusions. Dr. Rodriguez of Thoracic Surgery Team is anticipated to evaluate the patient later today. Regarding her elevated troponin, this is most likely reflective of demand ischemia and unlikely to represent acute coronary syndrome. The levels are relatively flat at 0.2, and her EKG does not suggest a recurrent of injury, and she has no significant chest discomfort. As such, I would not pursue an ischemic evaluation at this time. Consultation Report [facility] [id number] [place]. [address] NAME: KYLE PAZ : 36 STATUS : ADM IN PAT#: [id number] AGE: 80 ADM/REG DATE : 05/01/16 MR#: [id number] REPORT SERV DATE: 05/03/16 DICTATED BY: RUFUS CONNOLLY DATE: 05/02/16 REPORT STATUS : Draft TRANSCRIBED BY: YADIEL DATE: 05/02/16 Thank you for consultation. We will follow along with you. KRIS/YADIEL Rufus Connolly MD / [id number] CC: Molly Allen M.D.
--- NOTE | ~2016-05-01 | HP ---
History And Physical [place] [id number] [facility] [place]. [address] NAME: KYLE PAZ : 37 STATUS : ADM IN [facility]#: [id number] AGE: 80 ADM/REG DATE : 05/01/16 MR#: [id number] REPORT SERV DATE: 05/02/16 DICTATED BY: PATRICIA FRAGA DATE: 05/01/16 REPORT STATUS : Draft TRANSCRIBED BY: MODL DATE: 05/01/16 DATE OF ADMISSION: 05/01/2016 POINT OF ENTRY: [facility] Emergency Department PRIMARY CARE PHYSICIAN: None at this time. PRIMARY CHICKEN HANDLER: Dr. Anderson. PRIMARY SUPERVISOR CHLORINE LIQUEFACTION: Dr. Torres. PRIMARY ONCOLOGIST: Dr. Vera. CHIEF COMPLAINT: Worsening shortness of breath. HISTORY OF PRESENT ILLNESS: Ms. Paz is a 80-year-old female with history of AL amyloidosis as well as chronic diastolic congestive heart failure who was admitted to our service from 04/22/2016 through 04/29/2016 for left-sided pleural effusion, volume overload, as well as for evaluation of treatment of the patient's AL amyloidosis. Unfortunately, the patient returns back to our service two days after discharge for reports of worsening shortness of breath as well as orthopnea. The patient recently relocated from [facility] down to [place] at her daughter's request for treatment of the patient's AL amyloidosis. As mentioned above, she was admitted to our hospital from 04/22/2016 to 04/29/2016 where she saw both Pulmonology, Cardiology, as well as Oncology. The patient underwent left-sided thoracentesis on 04/27/2016 for recurrent left-sided pleural effusion as well as aggressive IV diuresis. Decision was made to start her on Revlimid as well as a weekly Decadron. The patient states that when she was discharged on Monday she was still very weak and short of breath. The patient states that for the two days while she has been at [place] she has noted worsening shortness of breath as well as some troubles with orthopnea and PND prompting her presentation to the emergency department. She otherwise denies any fevers, night sweats, chills, chest pain, palpitations, abdominal pain, nausea, vomiting, diarrhea, constipation, melena, or hematochezia. She does report some worsening lower extremity edema as well as poor appetite. She did start her Revlimid yesterday but her first dose of Decadron is to be tomorrow. Initial evaluation in the emergency department notable for a BNP elevated at 976, chest x- ray with a left greater than right pleural effusion, as well as a CT of the chest negative for PE but does show extensive atelectasis as well as left greater than right pleural effusions. Troponin was 0.21. EKG was nonischemic. She was subsequently admitted to the Hospitalist Service for further evaluation and management. REVIEW OF SYSTEMS: Comprehensive review of systems otherwise negative unless listed in history of present History And Physical [address] [address] NAME: KYLE PAZ : 37 STATUS : ADM IN [facility]#: [id number] AGE: 80 ADM/REG DATE : 05/01/16 MR#: [id number] REPORT SERV DATE: 05/02/16 DICTATED BY: PATRICIA FRAGA DATE: 05/01/16 REPORT STATUS : Draft TRANSCRIBED BY: YADIEL DATE: 05/01/16 illness. PREVIOUS MEDICAL HISTORY: 1. AL amyloidosis, recently started Revlimid and Decadron therapy. 2. Chronic diastolic congestive heart failure. 3. Hypothyroidism. 4. Remote history of TB as a child. 5. Recurrent left-sided pleural effusion, status post multiple thoracenteses. SURGICAL HISTORY: 1. Abdominal hysterectomy. 2. Skin cancer resection. ALLERGIES: NO KNOWN DRUG ALLERGIES. HOME MEDICATIONS: Pending at the time of dictation. SOCIAL HISTORY: Denies any tobacco, alcohol, or illicits. She is currently in [facility], recently relocated from the [facility] at daughter's request. FAMILY MEDICAL HISTORY: Notable for coronary artery disease and hypertension. LABS AND IMAGIN. White count is 6.0, hemoglobin 13.5, hematocrit is 37.2, platelet count is 341, INR is 1.2. 2. Sodium is 138, potassium 4.4, chloride 104, carbon dioxide 28, BUN 33, creatinine 0.91, glucose is 94, calcium is 8.2, magnesium is 2.2. 3. Troponin is 0.21. BNP is 976. 4. EKG per my review shows sinus tachycardia with no evidence of any acute ischemic infarction. 5. Chest x-ray per my review shows left greater than right pleural effusions. 6. CT of the chest is negative for PE, does show extensive periaortic lymphadenopathy as well as left lower lobe greater than right lower lobe pleural effusions as well as atelectasis as well as an abnormal appearing mid to distal esophagus concerning for inflammatory versus neoplastic process. PHYSICAL EXAMINATION: VITAL SIGNS: Temperature is 98.3 degrees Fahrenheit, pulse is 107, respirations 18, saturating 95% on room air, and blood pressure is 104/65. On recheck, blood pressure is now 91/58, saturating 94%, pulse is 93. GENERAL: The patient is awake, alert, in no acute distress, resting comfortably in bed. She is a well-developed, well-nourished, elderly female. HEENT: Atraumatic and normocephalic. Moist mucous membranes. Pupils equal, round, and reactive to light and accommodation. Extraocular eye movements are intact. No scleral icterus. NECK: Some positive mild jugular venous distention. No carotid bruits. CARDIAC: Regular rate and rhythm. No murmurs, rubs, or gallops. Normal S1, S2. History And Physical [address] [address] NAME: KYLE PAZ : 37 STATUS : ADM IN [facility]#: [id number] AGE: 80 ADM/REG DATE : 05/01/16 MR#: [id number] REPORT SERV DATE: 05/02/16 DICTATED BY: PATRICIA FRAGA DATE: 05/01/16 REPORT STATUS : Draft TRANSCRIBED BY: YADIEL DATE: 05/01/16 LUNGS: Decreased breath sounds, left greater than right lung bases with some mild inspiratory crackles. Otherwise, no wheezes, rhonchi appreciated. ABDOMEN: Soft, nontender, nondistended. Good bowel sounds. No rebound, guarding, or rigidity. EXTREMITIES: Warm, perfused with 1+ lower extremity edema. SKIN: Warm and dry. PSYCH: Affect appropriate. NEURO: Alert and oriented x3. Cranial nerves 2 through 12 grossly intact. Speech is normal. Gait not assessed. ASSESSMENT: Ms. Paz is a 80-year-old female with a known history of AL amyloidosis as well as chronic diastolic congestive heart failure and recurrent left-sided pleural effusions who presents back to the emergency department two days after discharge for worsening shortness of breath, orthopnea, and PND. PROBLEM LIST: 1. Acute on chronic diastolic congestive heart failure. 2. Recurrent left-sided pleural effusion. 3. AL amyloidosis. 4. Elevated troponin level. 5. Hypothyroidism. 6. Hypoalbuminemia. PLAN: 1. Acute on chronic diastolic congestive heart failure. The patient's BNP of 976 is mildly elevated compared to most recent BNP we have from her previous admission of 697. Looking at chest x-ray, she does have some bilateral pleural effusions as well as some lower extremity edema and JVD on examination. As such, we will place her on IV Bumex q.8 hours, place her on fluid as well as sodium restriction, consult Cardiology for assistance. 2. Elevated troponin level. The patient denies any chest pain. Her EKG is nonischemic likely secondary to patient's acute on chronic congestive heart failure. Of note, she also had elevated troponin level during her last admission. We will consult Cardiology for assistance. Continue the patient's home aspirin. 3. Recurrent pleural effusions. Per review of chest x-ray, it appears that her left pleural effusion is not significantly changed compared to chest x-ray from 04/29/2016. We will attempt IV diuresis, and we will consult Pulmonology for assistance to see if they feel a repeat therapeutic thoracentesis is indicated. 4. AL amyloidosis. We will continue the patient's home Revlimid and Decadron. We will consult Oncology for assistance. 5. Hypoalbuminemia. The patient had a severely low albumin level during her previous admission requiring IV albumin infusion to assist with diuresis. Unfortunately, there are no albumin levels today, we will try to obtain these, place her on some low-dose IV albumin therapy to assist with diuresis. 6. DVT prophylaxis. Lovenox subcu. CODE STATUS: The patient wished to be full code. History And Physical [address] [address] NAME: KYLE PAZ : 37 STATUS : ADM IN [facility]#: [id number] AGE: 80 ADM/REG DATE : 05/01/16 MR#: [id number] REPORT SERV DATE: 05/02/16 DICTATED BY: PATRICIA FRAGA DATE: 03/26/17 REPORT STATUS : Draft TRANSCRIBED BY: MODL DATE: 05/01/16 JCB/MODL Patricia Fraga MD / [id number] CC: Hao Arenas M.D. Nathan Mull IV, M.D. Gregg Shander, M.D.
--- NOTE | ~2016-05-01 | CN ---
Consultation Report [facility] [address] [place]. [address] NAME: KYLE PAZ : 36 STATUS : ADM IN PAT#: [id number] AGE: 80 ADM/REG DATE : 05/01/16 MR#: [id number] REPORT SERV DATE: 05/03/16 DICTATED BY: PATRICIA RODRIGUEZ JR. DATE: 05/03/16 REPORT STATUS : Draft TRANSCRIBED BY: MODL DATE: 05/03/16 CONSULTATION HISTORY AND PHYSICAL DATE OF CONSULTATION: 05/03/2016 REASON FOR CONSULTATION: Recurrent left pleural effusion. BRIEF HISTORY: This is a 80-year-old white female, who has a history of recurrent left pleural effusion with past medical history significant for amyloid light-chain amyloidosis, recently started on Revlimid. She also has heart failure with a preserved ejection fraction and hypothyroidism. She presented approximately a week ago with a left pleural effusion and worsening shortness of breath and she underwent a thoracentesis of the left side on 04/27 and over a liter of fluid was removed with negative pathology. She improved and was transitioned back to her assisted living facility. However, she re-presented with progressive shortness of breath and recurrent left pleural effusion. She underwent a CT of the chest to rule out pulmonary embolism. CTA of the chest showed a stable periaortic lymph nodes, measuring 2.2 x 3.8 cm as well as bilateral pleural effusions left greater than right. We were asked to see her for consideration of a left thoracoscopy with talc pleurodesis. PAST MEDICAL HISTORY: Significant for AL amyloidosis, hyperthyroidism, heart failure with preserved ejection fraction, recurrent left pleural effusion, hypertension. PAST SURGICAL HISTORY: Significant for total hysterectomy, excision of skin cancers on left arm, a bunionectomy of her left foot, and a kidney biopsy as well as an I and D of a breast abscess. FAMILY HISTORY: Significant for coronary artery disease and hypertension. She denies any known history of any lung cancers. SOCIAL HISTORY: The patient is and has four children who are very active in her life. 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 She is a nonsmoker and denies any alcohol or illicit drug use. HOME MEDICATIONS: Include aspirin 81 mg, Decadron 4 mg, Revlimid 15 mg, levothyroxine 125 mcg, metoprolol 25 mg twice daily, potassium 20 mEq, spironolactone 25 mg, and torsemide 5 mg. ALLERGIES: TETANUS AND TOXOID. REVIEW OF SYSTEMS: Significant for fatigue and shortness of breath. A complete 12-point review of systems was performed. All other systems are negative except for the above-mentioned pertinent positives in history of present illness. Consultation Report [place] [address] [place]. [address] NAME: KYLE PAZ : 36 STATUS : ADM IN [facility]#: [id number] AGE: 80 ADM/REG DATE : 05/01/16 MR#: [id number] REPORT SERV DATE: 05/03/16 DICTATED BY: PATRICIA RODRIGUEZ JR. DATE: 05/03/16 REPORT STATUS : Draft TRANSCRIBED BY: YADIEL DATE: 05/03/16 PHYSICAL EXAMINATION: VITAL SIGNS: Oxygen saturation 92% on 2 L via the nasal cannula, blood pressure 102/56, afebrile heart rate 109, weight 62 kg, height 5 feet 3 inches. GENERAL: This is a 80-year-old white female, who is alert and oriented, in no acute distress. HEENT: Normocephalic, atraumatic. Pupils equal, round, reactive to light. Ears and throat without lesions or exudate. NECK: Supple with no lymphadenopathy, JVD, or bruits. Trachea midline. No obvious goiter. CHEST: Symmetrical with no chest wall deformities. CARDIOVASCULAR: Regular rhythm with an early diastolic murmur. RESPIRATORY: Decreased breath sounds bilaterally greater on the left than the right. ABDOMEN: Soft, nontender, nondistended. Positive bowel sounds in all four quadrants. No hepatosplenomegaly. : The patient voids without difficulty. Further examination was deferred. MUSCULOSKELETAL: No obvious kyphosis or scoliosis. SKIN: Warm and dry with normal turgor. No lesions or breakdown noted. EXTREMITIES: 2+ pitting edema bilaterally in lower extremities. PSYCHIATRIC: Normal mood and affect. She is pleasant. NEUROLOGIC: No focal neurological deficits noted. DATA: CTA of the chest dated 05/01/2016, impression: 1. No CTA evidence of pulmonary embolus. 2. Periaortic adenopathy suspicious for metastatic disease or possibly lymphoma. 3. Extensive atelectasis of the majority of the left lower lobe sparing only superior segment, although no central obstructing lung mass or endobronchial lesion. Underlying moderate to large pleural effusion. 4. Subsegmental atelectasis, right posterior lower lobe and underlying small pleural effusions. 5. Right apical chronic appearing partially calcified parenchymal fibrosis and focal calcified pleural plaques. Right posterior hemothorax. 6. Circumferentially thickened mid and distal 3rd of the thoracic esophagus. LABORATORIES: Dated, 05/03/2016: Sodium 138, potassium 4.1, BUN 30, creatinine 1.04, glucose 169, calcium 8.7, magnesium 2.2, phosphorus 3.7. White blood cell count 5.1, hemoglobin 11.6, hematocrit 34.3, platelet count 291. Echocardiogram dated 04/23/2016 showing normal LV size and systolic function, estimated ejection fraction 50-55%, mild concentric LVH. No regional wall motion abnormalities identified, moderate diastolic function, normal RV size and systolic function. Mild left atrial enlargement. Moderate aortic valve regurgitation, trace pericardial effusion, enlarged left pleural effusion. PROBLEM LIST: 1. Recurrent left pleural effusion. 2. Amyloidosis. 3. Hypertension. Consultation Report [address] [address] NAME: KYLE PAZ : 36 STATUS : ADM IN PAT#: [id number] AGE: 80 ADM/REG DATE : 05/01/16 MR#: [id number] REPORT SERV DATE: 05/03/16 DICTATED BY: PATRICIA RODRIGUEZ JR. DATE: 05/03/16 REPORT STATUS : Draft TRANSCRIBED BY: YADIEL DATE: 05/03/16 4. Hypothyroidism. IMPRESSION AND PLAN: This is a 80-year-old white female with AL amyloidosis with recurrent left pleural effusion, last Pap approximately a week ago with 1.3 L removed with negative pathology and she re-presented after being discharged home with progressive dyspnea and CTA showing recurrent left pleural effusion. Given her history, it is not unreasonable and we will move forward with a left thoracoscopy with talc pleurodesis. If she does not get re- expansion of her lungs, she may require PleurX catheter and I discussed this with the patient as well as her son. We reviewed the risks, benefits, and expected outcomes of the procedure and they are willing to proceed on with a left thoracoscopy with talc pleurodesis today by Dr. Rodriguez. All questions regarding the procedure were answered and we will move forward with surgery this afternoon. DICTATED BY: Eunice Yoon NP AM/YADIEL Patricia Rodriguez Jr., M.D. / [id number] CC: Zack Mcfarland MD
--- NOTE | ~2016-05-01 | CN ---
Consultation Report [facility] [address] [place]. [address] NAME: KYLE PAZ : 36 STATUS : ADM IN PAT#: [id number] AGE: 80 ADM/REG DATE : 05/01/16 MR#: [id number] REPORT SERV DATE: 05/06/16 DICTATED BY: LEEANNA ADAN DATE: 05/05/16 REPORT STATUS : Draft TRANSCRIBED BY: MODL DATE: 05/05/16 CONSULTATION DATE OF CONSULTATION: 05/05/2016 TIME: 1:54 p.m. REASON FOR CONSULTATION: Worsening renal function. ASSESSMENT: Acute kidney injury in the setting of primary amyloidosis with a patient with severe nephrosis, biopsy-proven primary amyloidosis based on daughter's history noted in a kidney biopsy done in [place], [place], in March of this year. She is now admitted for left pleural effusion and shortness of breath and has had periods of hypotension throughout this admission indicating she is likely gone on to [facility]. In the setting of severe nephrosis, she is at very high risk of acute kidney injury, cannot rule out renal vein thrombosis at this time and a baseline creatinine of 0.7 has now gone up to 2.92 indicative of severe renal injury. PLAN: 1. Hold all diuretics. 2. Continue IV albumin, check a renal ultrasound, check if there is any possibility of edematous kidneys suggest that there may be renal vein thrombosis. 3. Follow serial labs, continued rising creatinine is the very poor prognostic sign, consider DNR. 4. Obtain hematology evaluation. Looking at the records, she has been seen by Dr. Vera, and the patient is on treatment with lenalidomide. This also predisposes the patient to DVT and clot formation. She is not a dialysis candidate. HISTORY OF PRESENT ILLNESS: History is obtained from the daughter and the records available. She is a 80-year-old female with nephrotic syndrome, and kidney biopsy proven amyloidosis, was admitted here to the hospital on 04/22 with a creatinine 0.7, now to 2.92, was 1.04 on 05/03, periods of hypotension dating back to 04/28/2016 and also post pleurodesis on 05/01. A Montiel catheter placed shows minimal urine output now, and the patient is in obvious distress post pleurodesis and complaining of pleuritic chest pain. She is an unfortunate female who has now relocated here on the request to be with her daughter who lives in [place], [place]. Apparently, she was in the hospital in [place] in March of this year for the diagnosis of amyloid, apparently she has had edema ongoing from last year. Question of preserved EF with heart failure, likely indicating that there is amyloid involvement of her heart as well. She is admitted here now since 04/22/2016 with increasing shortness of breath and has had recurrent left pleural effusions for which she has not undergone left pleurodesis with talc. PAST MEDICAL HISTORY: 1. Includes a history of amyloidosis, primary. Consultation Report [place] [id number] [facility] [place]. [address] NAME: KYLE PAZ : 36 STATUS : ADM IN [facility]#: [id number] AGE: 80 ADM/REG DATE : 05/01/16 MR#: [id number] REPORT SERV DATE: 05/06/16 DICTATED BY: LEEANNA ADAN DATE: 05/05/16 REPORT STATUS : Draft TRANSCRIBED BY: YADIEL DATE: 05/05/16 2. Chronic diastolic heart failure. 3. Hypothyroidism. 4. 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 5. Pleural effusion. 6. 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 She has had undergone hysterectomy and excision skin cancer. SOCIAL HISTORY: No alcohol, tobacco, or medication or street drug usage. FAMILY HISTORY: Notable for coronary artery disease. MEDICATIONS: At home included dexamethasone, cyanocobalamin, aspirin, lenalidomide, levothyroxine, metoprolol, spironolactone, potassium, torsemide. REVIEW OF SYSTEMS: System review as per the HPI. PHYSICAL EXAMINATION: GENERAL: She is an unfortunate female, very chronically ill appearing. VITAL SIGNS: Blood pressure 127/58, heart rate in the 60s afebrile. HEENT: Pupils are reacting to light. She is pale but not jaundiced. Oral mucosa is moist. No pharyngitis. NECK: Supple. No thyromegaly. Trachea is central. Air entry is equal bilaterally. CHEST: Clear to auscultation. Left pleural chest tube is noted, and she is very tender to touch in that area. ABDOMEN: Mild distention. No hepatosplenomegaly. She has generalized anasarca. NEURO: She is awake, alert, but lethargic and arousable, will follow commands. No skin rash noted. Edema is noted. Muscle bulk is reduced and peripheral pulses are present to dorsalis pedis and posterior tibial. LABORATORY DATA: Lab work shows her to have sodium 134, potassium 5.5, chloride 101, CO2 of 19, BUN 44, creatinine 2.92. Albumin is 3.2, hemoglobin is 10.7, hematocrit 28.9, white count 9.2, platelet count 283 thousand. Urinalysis shows massive proteinuria. MG/MODL Leeanna Adan M.D. / [id number] CC: Zack Mcfarland MD
--- NOTE | ~2016-05-01 | OP ---
Record Of Operation [facility] [address] [place]. [address] NAME: KYLE PAZ : 36 STATUS : ADM IN PAT#: [id number] AGE: 80 ADM/REG DATE : 05/01/16 MR#: [id number] REPORT SERV DATE: 05/03/16 DICTATED BY: PATRICIA RODRIGUEZ JR. DATE: 05/03/16 REPORT STATUS : Draft TRANSCRIBED BY: MODL DATE: 05/03/16 DATE OF PROCEDURE: 05/03/2016 PREOPERATIVE DIAGNOSES: Recurrent left pleural effusion, amyloidosis, congestive heart failure, hypertension, protein calorie malnutrition, albumin 1.9. POSTOPERATIVE DIAGNOSES: Recurrent left pleural effusion, amyloidosis, congestive heart failure, hypertension, protein calorie malnutrition, albumin 1.9. NAME OF OPERATION: Bronchoscopy, left thoracoscopy with drainage of pleural effusion, attempted biopsy of AP window lymph node, talc pleurodesis 5 g, intercostal nerve block. SURGEON: Dr. Patricia Rodriguez Jr. RESIDENT SURGEON: Dr. Graham Howard. [facility]: Moy Alcala. ANESTHESIA: General endotracheal. FINDINGS: The patient was noted to have no contraindications to resection to the surgical procedure based on bronchoscopy. Mucous secretions were evacuated. The anatomy was normal. There were significant adhesions within the chest cavity, particularly the left upper lobe was adherent to the AP window region. We could get some adhesions taken down safely where we could see the lymph node. It had a very benign architecture. We were unable to get a biopsy forceps into position. Her tissues were very friable and frail and bled easily. After extensive amount of time, we felt that it was not realistic to mobilize the entire lung off this lymph node given that there is high risk for injury to the nerve as well as injury to the lung. There was still very significant lymphadenopathy seen. There was good reexpansion of both lobes of the lung. Talc was placed in the chest cavity. DETAILS OF OPERATION: After adequate general anesthesia. The patient was intubated and bronchoscopy performed. There were no contraindications to proceeding on with surgery. A left-sided double-lumen endotracheal tube was then placed. The patient was then positioned in the right lateral decubitus position where the left chest was prepped and draped in a routine sterile fashion. A small incision was made overlying the lower intercostal space. Through this single incision site, the above findings were noted. The second anterior trocar incision was made in attempts to help take down the adhesions and mobilize the left upper lobe. We could see the lymph node in the AP window region which looked benign but we could not get the biopsy forceps or an instrument in that area without risking injuring the aorta and/or the vagus and phrenic nerves. The tissues were very friable. After exhaustive efforts, we decided to abort this portion of the procedure. The parietal pleura looked normal. The fluid that was removed from the chest cavity also looked serous in nature. There was good reexpansion of the lung. We decided to go ahead and put 5 g of talc into the chest cavity. A 32-Serbian chest tube was placed. An intercostal nerve block was performed. The lung was reinflated. The trocar sites were closed with running Vicryl sutures. The Record Of Operation [facility] [address] [facility] [place]. [address] NAME: KYLE PAZ : 37 STATUS : ADM IN [facility]#: [id number] AGE: 80 ADM/REG DATE : 05/01/16 MR#: [id number] REPORT SERV DATE: 05/03/16 DICTATED BY: PATRICIA RODRIGUEZ JR. DATE: 05/03/16 REPORT STATUS : Draft TRANSCRIBED BY: MODL DATE: 05/03/16 skin was closed with running monofilament suture. A Dermabond dressing was applied and the procedure was terminated at this point. The patient tolerated the procedure well and taken back to the recovery room in stable condition. TASHIA/YADIEL Patricia Rodriguez Jr., M.D. / [id number] CC: Zack Mcfarladn MD
--- NOTE | ~2016-05-01 | DS ---
Discharge Summary [facility] [address] [place]. [address] NAME: KYLE PAZ : 36 STATUS : DIS IN PAT#: [id number] AGE: 80 ADM/REG DATE : 05/01/16 MR#: [id number] REPORT SERV DATE: 05/08/16 DICTATED BY: ENID DONATO DATE: 05/07/16 REPORT STATUS : Draft TRANSCRIBED BY: MODL DATE: 05/07/16 ADMISSION DATE: 05/01/2016 DISCHARGE DATE: 05/07/2016 SUMMARY DATE OF : 05/06/2016 TIME OF : 10:29 p.m. DISCHARGE DIAGNOSES: 1. Amyloidosis. 2. Acute on chronic heart failure. 3. Acute kidney injury. 4. Hyperkalemia. 5. Multiorgan failure. 6. Type 2 demand ischemia. 7. Protein-calorie malnutrition. 8. Hypothyroidism. 9. Aortic regurgitation, moderate. 10.Recurrent pleural effusions, requiring multiple taps and ventral chest tube. 11.DNR status. CONSULTANTS: Dr. Rodriguez, Dr. Adan, Dr. Connolly, and Pulmonary, Dr. High. HISTORY OF PRESENT ILLNESS: The patient was a 80-year-old female with a past medical history of amyloidosis with acute on chronic heart failure, diastolic component; hypothyroidism, adrenal insufficiency. PROCEDURES PERFORMED: Bronchoscopy, left thoracoscopy with drainage of pleural effusion. Attempted biopsy of AP window lymph node, talc pleurodesis, and intercostal nerve block. HOSPITAL COURSE: Please see H and P for complete details of the HPI. Briefly, Ms Paz is a 80-year-old female with history of amyloidosis, recently started on Revlimid and Decadron, additionally chronic diastolic heart failure, found also be adrenal insufficient during this hospitalization, also with hypothyroidism who has had multiple thoracentesis for recurrent left-sided pleural effusion. The patient was evaluated by Pulmonology with subsequent referral to CT surgeon due to rapid refilling of her chest wall space from fluid, additional further evaluation of lymph node. The patient underwent bronchoscopy, thoracoscopy, and drainage of pleural effusion, attempted biopsy of AP window and talc pleurodesis with nerve block with improved aeration of lungs. However, the patient was additionally throughout workup found also to be adrenal insufficient as the patient was with a chronically low blood pressure throughout the stay, maintaining systolics in and even as low as . The patient had been on Revlimid and Decadron therapy per Oncology and was continued on this postprocedure, however, the patient was noted to be progressively hypotensive postop and was monitored in the ICU Discharge Summary [address] [place] [address] NAME: KYLE PAZ : 37 STATUS : DIS IN PAT#: [id number] AGE: 80 ADM/REG DATE : 05/01/16 MR#: [id number] REPORT SERV DATE: 05/08/16 DICTATED BY: ENID DONATO DATE: 05/07/16 REPORT STATUS : Draft TRANSCRIBED BY: YADIEL DATE: 05/07/16 for hypotension, placed on temporary pressors while in ICU, but she was able to be weaned off. She was also started on higher dose IV steroids with hydrocortisone and had fairly good response with blood pressure. The patient was still alert and talking upon arrival to the ICU, although slightly more lethargic postprocedure. The patient did have notable amount of discomfort positionally, however, due to blood pressure was still limited on additional pain medications and did have epidural monitored by Anesthesia for this. The patient progressively continued to have multiorgan dysfunction as the patient already has diastolic heart failure dysfunction with effusions, adrenal insufficiency, and has had chronic debility state with protein-calorie malnutrition. Also, had progressive hypotension from adrenal insufficiency. The patient further had declined in renal function, essentially going into failure causing further electrolyte abnormalities with multiorgan dysfunction in the presence of amyloid. The patient was having a very difficult overall response and has had progressive decline of quality of life in the last year. The patient has expressed in years past to her family that she was DNR and she would want to be comfortable after discussing case with multidisciplinary team including Nephrology, Pulmonary about clinical situation. The patient was nearing end of life likely from amyloid sequelae which included multiorgan dysfunction with cardiac, vascular/adrenal, renal, and pulmonary dysfunctions. The patient continued to decline any additional aggressive support and passed comfortably with family at bedside on 05/06/2016. CONSUELO/PRAFULL Enid Donato MD / [id number] CC: Enid Donato MD
--- NOTE | ~2016-05-01 | CN ---
Consultation Report [facility] [address] [place]. [address] NAME: KYLE PAZ : 37 STATUS : ADM IN PAT#: [id number] AGE: 80 ADM/REG DATE : 05/01/16 MR#: [id number] REPORT SERV DATE: 05/02/16 DICTATED BY: CHAVEZ CONDON DATE: 05/02/16 REPORT STATUS : Draft TRANSCRIBED BY: MODL DATE: 05/02/16 CONSULTATION DATE OF CONSULTATION: 05/02/2016 CHIEF COMPLAINT: Shortness of breath in a patient with recurrent pleural effusions. HISTORY OF PRESENT ILLNESS: Mrs. 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 It should be noted that, Mrs. Paz was just recently discharged from [facility] for similar complaints. Mrs. Paz was seen by our Pulmonary Service on this recent hospitalization. She has not had the opportunity to establish in our outpatient clinic. She does not usually require any supplemental oxygen. She is not usually on any pulmonary medications. She describes herself as a never smoker. She denies symptomatology related to obstructive sleep apnea. She describes her exercise tolerance of late as being quite limited, being only able to ambulate around her home before experiencing some degree of shortness of breath. Again, Mrs. Paz was hospitalized from 04/22/2016 to 04/29/2016. She was seen by our Pulmonary Service primarily for questions involving her shortness of breath as well as bilateral pleural effusions. She eventually underwent thoracentesis on 04/27/2016. 1.3 L of transudative fluid was aspirated. This was path negative. She did eventually improve and transitioned to a rehab facility. While there, she began to experience worsening shortness of breath as well as concomitant worsening lower extremity edema and as such was transferred to [facility]'s Emergency Room. Upon arrival, she was found to be normotensive and afebrile. She had good oxygenation at 95%. Her initial blood work revealed a white blood cell count of 6000. She had a BNP noted to be 967.6. Troponins were elevated with initial value of 0.21. She did eventually undergo a CT of the chest, which demonstrated no sign of pulmonary embolism. A stable periaortic lymph node was appreciated noting 2.2 x 3.8 cm. Pleural plaques were noted as well as bilateral pleural effusions. For the aforementioned reasons, she has been referred to the Pulmonary Service for further assessment. Mrs. Paz' main pulmonary complaint today is shortness of breath. This is worse on exertion and relieved by rest. She does have a dry nonproductive cough. She denies any wheezing in her chest. The patient does have a remote history of previous exposures to TB. She has completed therapy for this. She denies recurrent upper respiratory infections or pneumonias. The patient does have known diastolic dysfunction as well as some moderate aortic valve regurgitation. She currently denies any murmurs, angina, or palpitations. She has had some Consultation Report [address] [address] NAME: KYLE PAZ : 37 STATUS : ADM IN [facility]#: [id number] AGE: 80 ADM/REG DATE : 05/01/16 MR#: [id number] REPORT SERV DATE: 05/02/16 DICTATED BY: CHAVEZ CONDON DATE: 05/02/16 REPORT STATUS : Draft TRANSCRIBED BY: YADIEL DATE: 05/02/16 paroxysmal nocturnal dyspnea as well as worsening lower extremity edema. In regard to constitutional symptoms, she currently denies fever, chills, nausea, vomiting, chest pain, abdominal pain. PAST MEDICAL HISTORY: 1. Amyloidosis. 2. Hypothyroidism. 3. Heart failure with preserved ejection fraction. 4. Left pleural effusion, status post previous thoracentesis. 5. Hypertension. 6. Remote history of TB. PAST SURGICAL HISTORY: 1. Total abdominal hysterectomy. 2. Ear surgery. 3. Skin cancer excision. 4. Bunionectomy of left foot. 5. Kidney biopsy. 6. I and D of breast abscess. FAMILY HISTORY: The patient denies a family history of lung disease. SOCIAL HISTORY: The patient is . She has four children, who are in good health. 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 She has had known exposures to asbestos in the past. TOBACCO/ALCOHOL: Again, the patient describes herself as a never smoker. She denies any recent alcohol or illicit drug use. MEDICATIONS: 1. Aspirin 81 mg. 2. Decadron 4 mg. 3. Revlimid 15 mg. 4. Levothyroxine 125 mcg. 5. Metoprolol 25 mg. 6. Potassium 20 mEq. 7. Spironolactone 25 mg. 8. Torsemide 5 mg. ALLERGIES: THE PATIENT HAS KNOWN ALLERGY TO TETANUS, TOXOID. REVIEW OF SYSTEMS: A complete review of systems was performed with pertinent positives and negatives contained within the body of the HPI. Consultation Report [address] [place]. [address] NAME: KYLE PAZ : 37 STATUS : ADM IN [facility]#: [id number] AGE: 80 ADM/REG DATE : 05/01/16 MR#: [id number] REPORT SERV DATE: 05/02/16 DICTATED BY: CHAVEZ CONDON DATE: 05/02/16 REPORT STATUS : Draft TRANSCRIBED BY: YADIEL DATE: 05/02/16 PHYSICAL EXAMINATION: VITAL SIGNS: Blood pressure is 95/51, heart rate is 82, T-max is 98.1, respiratory rate is 18, and SpO2 is 92% on room air. GENERAL: The patient is a pleasant, well-nourished/well-developed female. The patient is exhibiting very mild increased work of breathing. Skin: Skin with appropriate texture and turgor. No rashes, lesions, or ulcers. Nails are clear without cyanosis or clubbing. HEENT: Head: Skull is normocephalic/atraumatic. Facies symmetric. No masses or lesions. Eyes: Sclera anicteric, conjunctiva pink without exudates. Extra ocular movements intact. Pupils are equal, round, reactive to light. Ears: Auricles and tragus without pain to palpation. Hearing is grossly intact. Nose: Bilateral nasal patency. Sinuses without tenderness upon palpation. Throat: Complete dentition in good repair. Lips, oral mucosa, tongue, palate, and pharynx pink and moist without lesions. Uvula rises equally on phonation. Tongue midline without deviation. NECK: Neck supple. Trachea midline. No cervical lymphadenopathy appreciated. THORAX/LUNGS: Thorax is symmetric with equal chest rise. Diminished breath sounds in the lower lung landers. Dullness to percussion in the left. No rales, wheezes, rhonchi CARDIOVASCULAR: Regular rate and rhythm. No murmurs, rubs, or gallops. Anterior chest without thrills, heaves, or lifts. ABDOMEN: Soft. Non-distended, non-tender. Active bowel sounds in all four quadrants. No hepatosplenomegaly noted. PERIPHERAL VASCULAR: 1+ pitting edema. No varicosities, stasis changes, open sores, ulcerations, or phlebitis. 2+ pulses in radial and dorsalis pedis. MUSCULOSKELETAL: Full AROM and PROM in all joints. No evidence of erythema, deformity, or crepitus. NEUROLOGIC: CN II - XII grossly intact. Good muscle bulk and tone bilaterally. Strength 5/5 throughout. PSYCHIATRIC: The patient demonstrates good judgment and insight. The patient is A&O x3. ACCESSORY DATA: Reveals an albumin of 1.4, BNP is 967.6, troponin is 0.24. White blood cell count is 5100, hemoglobin and hematocrit are 13.4 and 39.0. CTA reveals no signs of pulmonary embolism. There is a periaortic lymph node measuring 2.2 x 3.8 cm. Pleural plaques are appreciated. There are bilateral pleural effusions left greater than right. Most recent echocardiogram reveals a left ventricular ejection fraction of 50% to 55%. There is moderate diastolic dysfunction as well as moderate aortic valve regurgitation. IMPRESSION: 1. Volume overload. 2. Heart failure with preserved ejection fraction. 3. Amyloidosis. 4. Elevated troponin. 5. Enlarged periaortic lymph node .. PLAN: Consultation Report [address] [address] NAME: KYLE PAZ : 37 STATUS : ADM IN [facility]#: [id number] AGE: 80 ADM/REG DATE : 05/01/16 MR#: [id number] REPORT SERV DATE: 05/02/16 DICTATED BY: CHAVEZ CONDON DATE: 05/02/16 REPORT STATUS : Draft TRANSCRIBED BY: MODL DATE: 05/02/16 1. The patient has been given diuretic. She is also noted to have some hypotension. She is receiving albumin. I would recommend continuing diuretic therapy as the patient's blood pressure tolerates. 2. In regard to the patient's bilateral pleural effusions and recurrent left effusion, these have been difficult to manage with medications. We discussed a therapeutic thoracentesis, however in the past this had given her limited relief, and as such, we should likely pursue a more definitive therapy. We discussed PleurX catheter placement. That being said, this would likely not be an optimal intervention given it's propensity to further deplete the patient of protein and electrolytes. A chest tube with pleurodesis may be a reasonable alternative. Ultimately, we will contact our colleagues in Cardiothoracic Surgery to evaluate the patient for possible video- assisted thorascopic surgery with talc pleurodesis. The aforementioned impression and plan has been discussed with Dr. Ardon, who will follow further recommendations. We thank you for this consult and look forward to participating in the care of Mrs. Kyle Paz. GBS/MODL Chavez Condon PA-C / [id number] CC: Molly Allen M.D.
[2016-05-01 17:06] LABS: BASOPHILS 0.5 %; BASOPHILS ABSOLUTE 0.03 10/3/uL (0.0-0.16); EOSINOPHILS 2.9 %; EOSINOPHILS ABSOLUTE 0.17 10/3/uL (0.0-0.53); ER CBC TAT 0 Hrs 08 Mins; HEMATOCRIT 37.2 % (36.0-48.0); HEMOGLOBIN 13.5 g/dL (12.0-16.0); IMMATURE GRANULOCYTES 0.5 %; IMMATURE GRANULOCYTES ABSOLUTE 0.03 10/3/uL (0.0-0.11); LYMPHOCYTES 12.6 %; LYMPHOCYTES ABSOLUTE 0.75 10/3/uL (0.67-4.30); MANUAL DIFF NO %; MEAN CORPUS HGB CONC 36.3 g/dL (32.0-36.0); MEAN CORPUSCULAR HEMOGLOB 36.5 pg (26.0-34.0); MEAN CORPUSCULAR VOLUME 100.5 fL (80-100); MEAN PLATELET VOLUME 10.4 fL (9.2-13.0); MONOCYTES 9.9 %; MONOCYTES ABSOLUTE 0.59 10/3/uL (0.21-1.20); NEUTROPHILS 73.6 %; NEUTROPHILS ABSOLUTE 4.38 10/3/uL (2.02-8.40); PLATELET COUNT 341 10/3/uL (150-400); RBC DISTRIBUTION WIDTH 13.4 % (12.0-16.0)
[2016-05-01 17:13] LABS: INTERNATIONAL NORMAL RATI 1.2 UNITS (-); PARTIAL THROMBO TIME 33.7 SEC (22.5-37.2); PROTIME (NOT ORD) 15.4 SEC (12.0-14.5)
[2016-05-01 17:36] LABS: BUN (BLOOD UREA NITROGEN) 33 MG/DL (6-23); CALCIUM, SERUM 8.2 MG/DL (8.5-10.4); CHLORIDE, SERUM 104 MMOL/L (96-112); CO2 (CARBON DIOXIDE) 28 MMOL/L (24-34); CREATININE 0.91 MG/DL (0.55-1.02); GFR AFRICAN AMERICAN 70 ML/MIN (>=60); GFR NON AFRICAN AMERICAN 60 ML/MIN (>=60); POTASSIUM, SERUM 4.4 MMOL/L (3.5-5.3); SODIUM, SERUM 138 MMOL/L (135-148)
[2016-05-01 17:37] LABS: GLUCOSE, SERUM 94 MG/DL (60-99)
[2016-05-01 17:39] LABS: CHEST PAIN PROFILE TAT 0 Hrs 41 Mins; TROPONIN I 0.21 NG/ML (<0.05)
[~2016-05-01 18:58] MED LIST: ASAB PO; B12250T PO; DEMADEX5 MG PO; KDUR20 PO; MULTIVIT/MIN PO; SPIRO25 PO; SYN125 PO; TOPXL25 PO; VITAMIN D1000 UNI1 PO
[2016-05-01] MEDS ORDERED: ASAB PO (19:06)
[2016-05-01] MEDS ORDERED: DEMADEX5 MG PO (19:06)
[2016-05-01] MEDS ORDERED: SPIRO25 PO (19:06)
[2016-05-01] MEDS ORDERED: VITAMIN D1000 UNI1 PO (19:06)
[2016-05-01] MEDS ORDERED: B12250T PO (19:07)
[2016-05-01] MEDS ORDERED: REVLIMID15 MG PO (19:07)
[2016-05-01] MEDS ORDERED: LEVOTHYROXIN125 MCG PO (19:07)
[2016-05-01] MEDS ORDERED: CENTRUM PO (19:08)
[2016-05-01] MEDS ORDERED: TOPXL25 PO (19:08)
[2016-05-01] MEDS ORDERED: DEX4 PO (19:08)
[2016-05-01] MEDS ORDERED: KDUR20 PO (19:11)
[2016-05-01 22:12] LABS: ALBUMIN 1.4 G/DL (3.5-5.0); ALKALINE PHOSPHATASE 86 U/L (45-117); TOTAL BILIRUBIN 0.1 MG/DL (0-1.2); TOTAL PROTEIN 6.3 G/DL (6.0-8.5)
[2016-05-01 22:13] LABS: DIRECT BILIRUBIN < 0.1 MG/DL (0.0-0.4); SGOT(AST) 52 U/L (5-40); SGPT(ALT) 39 U/L (5-65)
[2016-05-02 06:52] LABS: BASOPHILS 0.6 %; BASOPHILS ABSOLUTE 0.03 10/3/uL (0.0-0.16); EOSINOPHILS 3.1 %; EOSINOPHILS ABSOLUTE 0.16 10/3/uL (0.0-0.53); HEMOGLOBIN 13.4 g/dL (12.0-16.0); IMMATURE GRANULOCYTES ABSOLUTE 0.05 10/3/uL (0.0-0.11); LYMPHOCYTES 13.7 %; MANUAL DIFF NO %; MEAN CORPUS HGB CONC 34.4 g/dL (32.0-36.0); MEAN PLATELET VOLUME 10.8 fL (9.2-13.0); MONOCYTES 10.4 %; MONOCYTES ABSOLUTE 0.53 10/3/uL (0.21-1.20); NEUTROPHILS 71.2 %; NEUTROPHILS ABSOLUTE 3.65 10/3/uL (2.02-8.40); PLATELET COUNT 338 10/3/uL (150-400); RBC DISTRIBUTION WIDTH 13.3 % (12.0-16.0); RED CELL COUNT 3.94 10/6/uL (4.0-5.6); WHITE BLOOD CELLS 5.1 10/3/uL (4.5-10.5)
[2016-05-02 07:07] LABS: BUN (BLOOD UREA NITROGEN) 26 MG/DL (6-23); CALCIUM, SERUM 8.3 MG/DL (8.5-10.4); CHLORIDE, SERUM 102 MMOL/L (96-112); CK-MB 2.7 NG/ML; CO2 (CARBON DIOXIDE) 28 MMOL/L (24-34); CPK 60 U/L (0-200); CREATININE 0.79 MG/DL (0.55-1.02); GFR AFRICAN AMERICAN 83 ML/MIN (>=60); GFR NON AFRICAN AMERICAN 71 ML/MIN (>=60); GLUCOSE, SERUM 90 MG/DL (60-99); POTASSIUM, SERUM 4.2 MMOL/L (3.5-5.3); SODIUM, SERUM 139 MMOL/L (135-148)
[2016-05-02 07:08] LABS: TROPONIN I 0.24 NG/ML (<0.05)
[2016-05-02 11:39] LABS: CPK 59 U/L (0-200)
[2016-05-02 12:15] LABS: PROCALCITONIN <0.05 ng/mL (<0.5)
[2016-05-03 05:07] LABS: BASOPHILS 0.2 %; BASOPHILS ABSOLUTE 0.01 10/3/uL (0.0-0.16); EOSINOPHILS 0.2 %; EOSINOPHILS ABSOLUTE 0.01 10/3/uL (0.0-0.53); HEMOGLOBIN 11.6 g/dL (12.0-16.0); IMMATURE GRANULOCYTES 0.6 %; IMMATURE GRANULOCYTES ABSOLUTE 0.03 10/3/uL (0.0-0.11); LYMPHOCYTES 6.5 %; LYMPHOCYTES ABSOLUTE 0.33 10/3/uL (0.67-4.30); MEAN CORPUS HGB CONC 33.8 g/dL (32.0-36.0); MEAN CORPUSCULAR HEMOGLOB 33.3 pg (26.0-34.0); MEAN CORPUSCULAR VOLUME 98.6 fL (80-100); MEAN PLATELET VOLUME 10.8 fL (9.2-13.0); MONOCYTES 6.9 %; MONOCYTES ABSOLUTE 0.35 10/3/uL (0.21-1.20); NEUTROPHILS 85.6 %; NEUTROPHILS ABSOLUTE 4.34 10/3/uL (2.02-8.40); PLATELET COUNT 291 10/3/uL (150-400); RBC DISTRIBUTION WIDTH 13.5 % (12.0-16.0); RED CELL COUNT 3.48 10/6/uL (4.0-5.6); WHITE BLOOD CELLS 5.1 10/3/uL (4.5-10.5)
[2016-05-03 05:08] LABS: HEMATOCRIT 34.3 % (36.0-48.0); MANUAL DIFF NO %
[2016-05-03 05:27] LABS: CALCIUM, SERUM 8.7 MG/DL (8.5-10.4); CHLORIDE, SERUM 101 MMOL/L (96-112); CO2 (CARBON DIOXIDE) 26 MMOL/L (24-34); CREATININE 1.04 MG/DL (0.55-1.02); GFR AFRICAN AMERICAN 59 ML/MIN (>=60); GFR NON AFRICAN AMERICAN 51 ML/MIN (>=60); POTASSIUM, SERUM 4.1 MMOL/L (3.5-5.3); SODIUM, SERUM 138 MMOL/L (135-148); TOTAL BILIRUBIN 0.2 MG/DL (0-1.2); TOTAL PROTEIN 5.8 G/DL (6.0-8.5)
[2016-05-03 05:30] LABS: ALBUMIN 1.9 G/DL (3.5-5.0); ALKALINE PHOSPHATASE 62 U/L (45-117); BUN (BLOOD UREA NITROGEN) 30 MG/DL (6-23); CK-MB 2.3 NG/ML; CPK 39 U/L (0-200); DIRECT BILIRUBIN < 0.1 MG/DL (0.0-0.4); INDIRECT BILIRUBIN(NOT ORDER) 0.1 MG/DL (0.1-0.9); TROPONIN I 0.25 NG/ML (<0.05)
[2016-05-03 05:32] LABS: GLUCOSE, SERUM 169 MG/DL (60-99)
[2016-05-03 05:33] LABS: SGOT(AST) 21 U/L (5-40); SGPT(ALT) 19 U/L (5-65)
[2016-05-03 12:32] LABS: ASCORBIC ACID (UR NOT ORDER) NEG (NEG); BILIRUBIN, URINE NEGATIVE (NEG); KETONE, URINE NEGATIVE (NEG); LEUKOCYTE ESTERASE(NOT OR NEG (NEG); WBC (NOT ORDERED) (RFLEX) 2 (0-5)
[2016-05-03 16:56] LABS: BASOPHILS 0 %; EOSINOPHILS 0.7 %; EOSINOPHILS ABSOLUTE 0.06 10/3/uL (0.0-0.53); HEMATOCRIT 34.5 % (36.0-48.0); HEMOGLOBIN 12.5 g/dL (12.0-16.0); IMMATURE GRANULOCYTES 0.1 %; IMMATURE GRANULOCYTES ABSOLUTE 0.01 10/3/uL (0.0-0.11); LYMPHOCYTES 4.6 %; LYMPHOCYTES ABSOLUTE 0.37 10/3/uL (0.67-4.30); MEAN PLATELET VOLUME 10.8 fL (9.2-13.0); MONOCYTES 4.4 %; MONOCYTES ABSOLUTE 0.35 10/3/uL (0.21-1.20); NEUTROPHILS 90.2 %; NEUTROPHILS ABSOLUTE 7.23 10/3/uL (2.02-8.40); PLATELET COUNT 296 10/3/uL (150-400); RBC DISTRIBUTION WIDTH 13.8 % (12.0-16.0); RED CELL COUNT 3.33 10/6/uL (4.0-5.6)
[2016-05-03 16:57] LABS: MANUAL DIFF NO %; MEAN CORPUS HGB CONC 36.2 g/dL (32.0-36.0); MEAN CORPUSCULAR HEMOGLOB 37.5 pg (26.0-34.0); MEAN CORPUSCULAR VOLUME 103.6 fL (80-100)
[2016-05-03 17:07] LABS: BUN (BLOOD UREA NITROGEN) 28 MG/DL (6-23); CALCIUM, SERUM 9.4 MG/DL (8.5-10.4); CHLORIDE, SERUM 100 MMOL/L (96-112); CO2 (CARBON DIOXIDE) 29 MMOL/L (24-34); CREATININE 1.16 MG/DL (0.55-1.02); GFR AFRICAN AMERICAN 52 ML/MIN (>=60); GFR NON AFRICAN AMERICAN 45 ML/MIN (>=60); GLUCOSE, SERUM 144 MG/DL (60-99); SODIUM, SERUM 138 MMOL/L (135-148)
[2016-05-04 17:42] LABS: ALKALINE PHOSPHATASE 53 U/L (45-117); CALCIUM, SERUM 8.6 MG/DL (8.5-10.4); CHLORIDE, SERUM 100 MMOL/L (96-112); CO2 (CARBON DIOXIDE) 25 MMOL/L (24-34); SODIUM, SERUM 135 MMOL/L (135-148); TOTAL PROTEIN 6.4 G/DL (6.0-8.5)
[2016-05-04 17:45] LABS: ALBUMIN 3.2 G/DL (3.5-5.0); BUN (BLOOD UREA NITROGEN) 37 MG/DL (6-23); CREATININE 2.34 MG/DL (0.55-1.02); GFR AFRICAN AMERICAN 22 ML/MIN (>=60); GFR NON AFRICAN AMERICAN 19 ML/MIN (>=60); GLOBULIN 3.2 G/DL (2.5-4.1); GLUCOSE, SERUM 120 MG/DL (60-99); POTASSIUM, SERUM 5.4 MMOL/L (3.5-5.3); SGOT(AST) 113 U/L (5-40); SGPT(ALT) 111 U/L (5-65); TOTAL BILIRUBIN 1.4 MG/DL (0-1.2)
[2016-05-04 18:24] LABS: BASOPHILS 0.1 %; BASOPHILS ABSOLUTE 0.01 10/3/uL (0.0-0.16); EOSINOPHILS 0 %; HEMATOCRIT 33.6 % (36.0-48.0); IMMATURE GRANULOCYTES 0.3 %; IMMATURE GRANULOCYTES ABSOLUTE 0.03 10/3/uL (0.0-0.11); LYMPHOCYTES 5.8 %; LYMPHOCYTES ABSOLUTE 0.52 10/3/uL (0.67-4.30); MEAN CORPUSCULAR VOLUME 101.2 fL (80-100); MEAN PLATELET VOLUME 11.7 fL (9.2-13.0); MONOCYTES 3.1 %; MONOCYTES ABSOLUTE 0.28 10/3/uL (0.21-1.20); NEUTROPHILS 90.7 %; NEUTROPHILS ABSOLUTE 8.09 10/3/uL (2.02-8.40); PLATELET COUNT 235 10/3/uL (150-400); RBC DISTRIBUTION WIDTH 13.8 % (12.0-16.0); RED CELL COUNT 3.32 10/6/uL (4.0-5.6); WHITE BLOOD CELLS 8.9 10/3/uL (4.5-10.5)
[2016-05-04 18:28] LABS: MANUAL DIFF NO %; MEAN CORPUS HGB CONC 32.7 g/dL (32.0-36.0); MEAN CORPUSCULAR HEMOGLOB 33.1 pg (26.0-34.0)
[2016-05-05 05:43] LABS: BASOPHILS 0.1 %; BASOPHILS ABSOLUTE 0.01 10/3/uL (0.0-0.16); EOSINOPHILS 0 %; HEMOGLOBIN 10.7 g/dL (12.0-16.0); IMMATURE GRANULOCYTES 0.3 %; IMMATURE GRANULOCYTES ABSOLUTE 0.03 10/3/uL (0.0-0.11); LYMPHOCYTES 4.7 %; LYMPHOCYTES ABSOLUTE 0.43 10/3/uL (0.67-4.30); MEAN PLATELET VOLUME 11.7 fL (9.2-13.0); MONOCYTES 4.1 %; MONOCYTES ABSOLUTE 0.38 10/3/uL (0.21-1.20); NEUTROPHILS 90.8 %; NEUTROPHILS ABSOLUTE 8.38 10/3/uL (2.02-8.40); PLATELET COUNT 203 10/3/uL (150-400); RBC DISTRIBUTION WIDTH 14.1 % (12.0-16.0); RED CELL COUNT 2.76 10/6/uL (4.0-5.6); WHITE BLOOD CELLS 9.2 10/3/uL (4.5-10.5)
[2016-05-05 05:47] LABS: HEMATOCRIT 28.9 % (36.0-48.0); MANUAL DIFF NO %; MEAN CORPUSCULAR HEMOGLOB 38.8 pg (26.0-34.0); MEAN CORPUSCULAR VOLUME 104.7 fL (80-100)
[2016-05-05 06:18] LABS: CALCIUM, SERUM 8.6 MG/DL (8.5-10.4); CHLORIDE, SERUM 101 MMOL/L (96-112); POTASSIUM, SERUM 5.9 MMOL/L (3.5-5.3); SODIUM, SERUM 134 MMOL/L (135-148)
[2016-05-05 06:20] LABS: BUN (BLOOD UREA NITROGEN) 44 MG/DL (6-23); CO2 (CARBON DIOXIDE) 19 MMOL/L (24-34); CREATININE 2.92 MG/DL (0.55-1.02); GFR AFRICAN AMERICAN 17 ML/MIN (>=60); GFR NON AFRICAN AMERICAN 15 ML/MIN (>=60); GLUCOSE, SERUM 136 MG/DL (60-99)
[2016-05-05 06:53] LABS: MACROCYTES 1+ (5-10/OIF) (0-5/OIF); PLATELET ESTIMATE ADQ (ADEQUATE)
[2016-05-05 06:56] LABS: TOXIC GRANULATION 1+
[2016-05-05 19:50] LABS: CREATININE, URINE 30.8 MG/DL
[2016-05-05 22:18] LABS: QUANTIFERON MITOGEN (MG NIL) 0.52 IU/mL (()); QUANTIFERON TB GOLD Negative (NEG); TUBERCULOSIS AG VAL (Ag-Nil) 0.03 IU/mL (<0.35)
[2016-05-06 02:31] LABS: A/G RATIO 0.9 (0.7-1.9); ALBUMIN 3.3 G/DL (3.5-5.0); ALKALINE PHOSPHATASE 57 U/L (45-117); CALCIUM, SERUM 8.9 MG/DL (8.5-10.4); CHLORIDE, SERUM 95 MMOL/L (96-112); CO2 (CARBON DIOXIDE) 20 MMOL/L (24-34); GLOBULIN 3.5 G/DL (2.5-4.1); SODIUM, SERUM 129 MMOL/L (135-148); TOTAL PROTEIN 6.8 G/DL (6.0-8.5)
[2016-05-06 02:32] LABS: BUN (BLOOD UREA NITROGEN) 56 MG/DL (6-23); GFR AFRICAN AMERICAN 11 ML/MIN (>=60); GFR NON AFRICAN AMERICAN 9 ML/MIN (>=60); POTASSIUM, SERUM 6.4 MMOL/L (3.5-5.3)
[2016-05-06 02:33] LABS: GLUCOSE, SERUM 158 MG/DL (60-99); SGOT(AST) 76 U/L (5-40); SGPT(ALT) 119 U/L (5-65); TOTAL BILIRUBIN 0.4 MG/DL (0-1.2)
[2016-05-06 02:39] LABS: BASOPHILS 0.2 %; BASOPHILS ABSOLUTE 0.02 10/3/uL (0.0-0.16); EOSINOPHILS 0.1 %; EOSINOPHILS ABSOLUTE 0.01 10/3/uL (0.0-0.53); HEMATOCRIT 30.6 % (36.0-48.0); HEMOGLOBIN 10.7 g/dL (12.0-16.0); IMMATURE GRANULOCYTES 0.5 %; IMMATURE GRANULOCYTES ABSOLUTE 0.06 10/3/uL (0.0-0.11); LYMPHOCYTES 4.8 %; LYMPHOCYTES ABSOLUTE 0.62 10/3/uL (0.67-4.30); MEAN CORPUSCULAR HEMOGLOB 38.2 pg (26.0-34.0); MEAN PLATELET VOLUME 12.4 fL (9.2-13.0); MONOCYTES 3.5 %; MONOCYTES ABSOLUTE 0.45 10/3/uL (0.21-1.20); NEUTROPHILS 90.9 %; RBC DISTRIBUTION WIDTH 14.2 % (12.0-16.0)
[2016-05-06 02:41] LABS: MANUAL DIFF NO %; MEAN CORPUSCULAR VOLUME 109.3 fL (80-100); PLATELET COUNT 135 10/3/uL (150-400); WHITE BLOOD CELLS 12.9 10/3/uL (4.5-10.5)
[2016-05-06 11:59] LABS: BUN (BLOOD UREA NITROGEN) 59 MG/DL (6-23); CALCIUM, SERUM 9.4 MG/DL (8.5-10.4); CHLORIDE, SERUM 95 MMOL/L (96-112); CO2 (CARBON DIOXIDE) 19 MMOL/L (24-34); CREATININE 4.69 MG/DL (0.55-1.02); GFR AFRICAN AMERICAN 10 ML/MIN (>=60); GFR NON AFRICAN AMERICAN 8 ML/MIN (>=60); SODIUM, SERUM 130 MMOL/L (135-148)
[2016-05-06 12:00] LABS: GLUCOSE, SERUM 101 MG/DL (60-99); POTASSIUM, SERUM 6.2 MMOL/L (3.5-5.3)
== END 2016-05-07 03:00 | disposition expired | DRG 981 ==
LOC: ER 18:58 → 5NO 22:04 → CVICU 05-04 00:32 → 5NO 05-04 14:36
PROVIDERS: Emergency Medicine; Hospitalist; Internal Medicine; Nurse Practitioner Acute Care; Student in an Organized Health Care Education/Training Program; Thoracic Surgery (Cardiothoracic Vascular Surgery)
PROC: 3E0L3GC Introduction of Other Therapeutic Substance into Pleural Cavity, Percutaneous Approach (ICD-10-PCS; 2016-05-03)
PROC: 3E0T3BZ Introduction of Anesthetic Agent into Peripheral Nerves and Plexi, Percutaneous Approach (ICD-10-PCS; 2016-05-03)
PROC: 0BJ08ZZ Inspection of Tracheobronchial Tree, Via Natural or Artificial Opening Endoscopic (ICD-10-PCS; principal; 2016-05-03 12:00)
PROC: 0B9P40Z Drainage of Left Pleura with Drainage Device, Percutaneous Endoscopic Approach (ICD-10-PCS; 2016-05-03 12:00)
DX: E85.4 Organ-limited amyloidosis (principal); I50.33 Acute on chronic diastolic (congestive) heart failure; N17.0 Acute kidney failure with tubular necrosis; J90 Pleural effusion, not elsewhere classified; E44.0 Moderate protein-calorie malnutrition; E88.09 Other disorders of plasma-protein metabolism, not elsewhere classified; I24.8 Other forms of acute ischemic heart disease; E27.40 Unspecified adrenocortical insufficiency; J98.11 Atelectasis; J98.4 Other disorders of lung; E03.9 Hypothyroidism, unspecified; Z82.49 Family history of ischemic heart disease and other diseases of the circulatory system; Z90.710 Acquired absence of both cervix and uterus; Z51.5 Encounter for palliative care; Z79.82 Long term (current) use of aspirin; Z79.899 Other long term (current) drug therapy; I35.0 Nonrheumatic aortic (valve) stenosis; Z66 Do not resuscitate
CPT/HCPCS: 36415; 71010; 71020; 71275; 80048; 80053; 80076; 81001; 82533; 82550; 82553; 82570; 82962; 83735; 83880; 84132; 84145; 84300; 84443; 84484; 84540; 85025; 85610; 85730; 86480; 86850; 86900; 86901; 86920; 87015; 87040; 87070; 87075; 87102; 87116; 87205; 87641; 93005; 94640; 96365; 99285; A9270-GY; J1720; J2250; J2370; J2405; J2543; J2710; J2795; J3010; P9045; P9047; Q9967